=== PATIENT | female | born 1945 | race Caucasian/White ===

== ENCOUNTER 2017-08-01 12:03 | Inpatient (IN) | payer MEDICAID, OTHER ==
[2017-08-01 12:30] VITALS: BMI 23.2
[2017-08-01] MEDS ORDERED: Albuterol 0.083% Inhal Sol (2.5 mg/3 mL) UD IH STA (13:08)
--- NOTE | 2017-08-01 13:32 | ED PDOC ---
Arrival/HPI - General Chief Complaint: Cough, Cold, Congestion Time Seen by Provider: 08/01/17 12:44 Historian: Patient, Family (son ) - History of Present Illness Narrative History of Present Illness (Text): 08/01/17 12:47 A 71 year old female, whose past medical history includes heart stents (10+ years), diabetes, hypertension, hyperlipidemia, and anemia, presents to the emergency department via EMS accompanied by son for generalized sickness, which began 10 days ago. The patient's son states the patient has been sick with a cough, vomiting, and diarrhea for 10 days. 3 days into her sickness they visited the patient's primary doctor, Dr. Dos Santos, who prescribed the patient with Zofran and Bactrim, which did not help the patient's symptoms. Dr. Dos Santos recommended the patient to be seen by an emergency department physician. The patient's son notes the patient has a cough with sputum, subjective fever, nasal congestion, constant vomiting and diarrhea after eating with no blood. The patient denies any chest pain, headaches, or any other complaints at this time. PMD: Dr. Dos Santos Time/Duration: > week (x 10 days ) Symptom Onset: Gradual Symptom Course: Unchanged Activities at Onset: Rest Context: Home Past Medical History - Provider Review Nursing Documentation Reviewed: Yes - Past History Past History: No Previous - Infectious Disease Hx of Infectious Diseases: None - Tetanus Immunization Tetanus Immunization: Up to Date - Reproductive Menopause: Yes - Cardiac Hx Hypertension: Yes - Psychiatric Hx Depression: No Hx Emotional Abuse: No Hx Physical Abuse: No Hx Substance Use: No - Surgical History Hx Coronary Stent: Yes Hx Hysterectomy: Yes - Suicidal Assessment Feels Threatened In Home Enviroment: No Family/Social History - Physician Review Nursing Documentation Reviewed: Yes Family/Social History: No Known Family HX Smoking Status: Never Smoked Hx Alcohol Use: No Hx Substance Use: No Hx Substance Use Treatment: No Allergies/Home Meds Allergies/Adverse Reactions: Allergies No Known Allergies Allergy (Verified 08/01/17 12:35) Home Medications: Home Meds Medication Instructions Recorded Confirmed Aspirin 81 mg PO DAILY 06/21/12 08/01/17 Ferrous Sulfate [Fe-Tabs] 325 mg PO DAILY 06/21/12 08/01/17 Metformin Hydrochloride [Metformin] 1,000 mg PO BID 06/21/12 08/01/17 Metoprolol Tartrate 25 mg PO BID 06/21/12 08/01/17 Simvastatin [Zocor] 40 mg PO DAILY 06/21/12 08/01/17 Amoxicillin/Potassium Clav 1 tab PO BID 04/11/15 08/01/17 [Amoxicillin and Clavulanate Potassium 500 mg-] Enalapril Maleate [Enalapril] 10 mg PO DAILY 04/11/15 08/01/17 Ranitidine HCl [Ranitidine 150] 150 mg PO BID 04/11/15 08/01/17 Review of Systems - Physician Review All systems were reviewed & negative as marked: Yes - Review of Systems Constitutional: Fevers (subjective) ENT: Sinus Congestion Respiratory: Cough, Sputum Cardiovascular: absent: Chest Pain Gastrointestinal: Diarrhea, Nausea, Vomiting Neurological: absent: Headache Physical Exam Vital Signs Reviewed: Yes Vital Signs Temp Pulse Resp BP Pulse Ox 08/01/17 13:16 86 18 132/75 97 08/01/17 12:48 98.5 F 97 H 18 134/85 97 08/01/17 12:29 98.5 F 97 H 18 134/85 96 Temperature: Afebrile Blood Pressure: Normal Pulse: Tachycardic Respiratory Rate: Normal Appearance: Positive for: Well-Appearing, Non-Toxic, Comfortable Pain Distress: None Mental Status: Positive for: Alert and Oriented X 3 - Systems Exam Head: Present: Atraumatic, Normocephalic Pupils: Present: PERRL Extroacular Muscles: Present: EOMI Conjunctiva: Present: Normal Mouth: Present: Moist Mucous Membranes Pharnyx: Present: Normal. No: ERYTHEMA, EXUDATE, TONSILS ENLARGED Neck: Present: Normal Range of Motion Respiratory/Chest: Present: Rhonchi (biulateral rhonchi), Other (actively coughing). No: Respiratory Distress, Accessory Muscle Use, Wheezes, Rales Cardiovascular: Present: Regular Rate and Rhythm, Normal S1, S2. No: Murmurs Abdomen: Present: Normal Bowel Sounds. No: Tenderness, Distention, Peritoneal Signs Upper Extremity: Present: Normal Inspection. No: Cyanosis, Edema Lower Extremity: Present: Normal Inspection. No: Edema Neurological: Present: GCS=15, CN II-XII Intact, Speech Normal Skin: Present: Warm, Dry, Normal Color. No: Rashes Psychiatric: Present: Alert, Oriented x 3, Normal Insight, Normal Concentration Medical Decision Making ED Course and Treatment: 08/01/17 13:00 Impression: A 71 year old female with vomiting, diarrhea, and coughing. Differential Diagnosis included but are not limited to: viral syndrome vs. pneumonia Plan: -- Chest X-ray -- EKG -- VBG -- Labs -- Albuterol, Zofran -- Urinalysis -- Reassess and disposition Progress Notes: 08/01/17 13:15 EKG: Ordered, reviewed, and independently interpreted the EKG. Rate : 84 BPM Rhythm : NSR Interpretation : Incomplete RBBB, left axis deviation and T wave inversion in lead 3. 08/01/17 13:57 Chest X-ray [employer] : Joesph Morales MD Report Date : 08/01/2017 13:43:54 HISTORY:cough r/o pna COMPARISON:No prior. FINDINGS: LUNGS:There is a minimal patchy infiltrate at the left lung base. PLEURA:No significant pleural effusion identified, no pneumothorax apparent. CARDIOVASCULAR:Normal. OSSEOUS STRUCTURES:No significant abnormalities. VISUALIZED UPPER ABDOMEN:Normal. OTHER FINDINGS:None. IMPRESSION: Minimal patchy infiltrate at the left lung base 08/01/17 14:13 Patient is noted to have left lung infiltrate and will treat with IV antiobiotics. Patient failed outpatient treatment for Pneumonia. WBC normal. Magnesium low an replaced. BUN elevated. Patient not tolerating PO fluids. Will admit for Pneumonia and IV hydration. Case discussed with Dr. Guido who will accept the case. - Lab Interpretations Lab Results: 08/01/17 13:25 08/01/17 13:25 Lab Results 08/01/17 13:25: Sodium 136, Chloride 97 L, Potassium 4.6, Carbon Dioxide 25, Anion Gap 19, BUN 25 H, Creatinine 1.1, Est GFR ( Amer) 59, Est GFR (Non- Af Amer) 49, Random Glucose 218 H, Calcium 10.3, Total Bilirubin 0.6, AST 36, ALT 23, Alkaline Phosphatase 80, Lactate Dehydrogenase 545, Total Creatine Kinase 52, Troponin I < 0.01, NT-Pro-B Natriuret Pep 241, Total Protein 8.7 H, Albumin 4.4, Globulin 4.3, Albumin/Globulin Ratio 1.0 L 08/01/17 13:25: WBC 9.8, RBC 4.12, Hgb 11.2 L, Hct 33.7 L, MCV 81.8, MCH 27.2, MCHC 33.2, RDW 14.7 H, Plt Count 444, MPV 9.1, Gran % 75.8 H, Lymph % (Auto) 16.8 L, [place] % (Auto) 6.9 H, Eos % (Auto) 0.3 L, Baso % (Auto) 0.2, Gran # 7.42 H, Lymph # 1.7, Beltrami # 0.7 H, Eos # 0.0, Baso # 0.02 08/01/17 13:20: Magnesium 1.4 L, Lipase 146 08/01/17 13:00: pO2 35, VBG pH 7.33, VBG pCO2 48.0, VBG HCO3 25.3, VBG Total CO2 26.8, VBG O2 Sat (Calc) 69.1 H, VBG Base Excess -1.1 L, VBG Potassium 4.6, Sodium 133.0, Chloride 99.0, Glucose 227 H, Lactate 2.1, FiO2 21.0, Venous Blood Potassium 4.6 - RAD Interpretation Radiology Orders: 08/01/17 13:06 CHEST PORTABLE [RAD] Stat - Medication Orders Current Medication Orders: Sodium Chloride (Sodium Chloride 0.9%) 1,000 mls @ 100 mls/hr IV .Q10H [facility] Last Admin: 08/01/17 14:11 Dose: 100 mls/hr eMAR Start Stop Document 08/01/17 14:11 SE (Rec: 08/01/17 14:11 SE [id number]) Intravenous Solution Start Date 08/01/17 Start Time 14:11 Discontinued Medications Albuterol Sulfate (Albuterol 0.083% Inhal Zoe (2.5 Mg/3 Ml) Ud) 2.5 mg IH STAT STA Stop: 08/01/17 13:09 Last Admin: 08/01/17 13:22 Dose: 2.5 mg Magnesium Oxide (Mag-Ox) 400 mg PO STAT STA Stop: 08/01/17 14:08 Last Admin: 08/01/17 14:12 Dose: 400 mg Ondansetron HCl (Zofran Inj) 4 mg IVP STAT STA Stop: 08/01/17 13:09 Last Admin: 08/01/17 13:22 Dose: 4 mg IVP Administration Document 08/01/17 13:22 SE (Rec: 08/01/17 13:22 SE [id number]) Charges for Administration # of IVP Administrations 1 - Scribe Statement The provider has reviewed the documentation as recorded by the Scribe Linda Abreu Provider Scribe Attestation: All medical record entries made by the Scribe were at my direction and personally dictated by me. I have reviewed the chart and agree that the record accurately reflects my personal performance of the history, physical exam, medical decision making, and the department course for this patient. I have also personally directed, reviewed, and agree with the discharge instructions and disposition. Disposition/Present on Arrival - Present on Arrival Any Indicators Present on Arrival: No History of DVT/PE: No History of Uncontrolled Diabetes: No Urinary Catheter: No History of Decub. Ulcer: No History Surgical Site Infection Following: None - Disposition Have Diagnosis and Disposition been Completed?: Yes Diagnosis: Pneumonia Disposition: HOSPITALIZED Disposition Time: 14:14 Patient Plan: Admission Condition: FAIR Referrals: Candie Guido MD [Primary Care Provider] - Follow up with primary Forms: [employer] (Telugu)
[2017-08-01 13:34] LABS: VENOUS BLOOD GAS BASE EXCESS -1.1 mmol/L (0.0-2.0); VENOUS BLOOD PH 7.33 (7.32-7.43)
[2017-08-01 13:34] LABS: BASO # 0.02 K/mm3 (0.0-2.0); BASO % 0.2 % (0.0-3.0); EOS % 0.3 % (1.5-5.0); GRAN # 7.42 (1.4-6.5); GRAN % 75.8 % (50.0-68.0); HEMATOCRIT 33.7 % (36.0-48.0); LYMPH # 1.7 (1.2-3.4); LYMPH % 16.8 % (22.0-35.0); MEAN CELL VOLUME 81.8 fl (80.0-105.0); MEAN CORPUSCULAR HEMOGLOBIN 27.2 pg (25.0-35.0); MEAN CORPUSCULAR HGB CONC 33.2 g/dl (31.0-37.0); MEAN PLATELET VOLUME 9.1 fl (7.0-11.0); MONO # 0.7 (0.1-0.6); MONO % 6.9 % (1.0-6.0); RED CELL DISTRIBUTION WIDTH 14.7 % (11.5-14.5); WHITE BLOOD COUNT 9.8 10^3/ul (4.5-11.0)
[2017-08-01 13:44] LABS: ALKALINE PHOSPHATASE 80 U/L (38-126); ALT/SGPT 23 U/L (7-56); AST/SGOT 36 U/L (14-36); BILIRUBIN,TOTAL 0.6 mg/dL (0.2-1.3); BLOOD UREA NITROGEN 25 mg/dL (7-21); CALCIUM 10.3 mg/dL (8.4-10.5); CARBON DIOXIDE 25 mmol/L (21-33); CHLORIDE 97 mmol/L (98-107); GFR AFRICAN-AMERICAN 59; GLUCOSE,RANDOM 218 mg/dL (70-110); POTASSIUM 4.6 mmol/L (3.6-5.0); SODIUM 136 mmol/L (132-148); TOTAL PROTEIN 8.7 g/dL (5.8-8.3)
--- NOTE | 2017-08-01 13:45 | RAD ---
HISTORY: cough r/o pna COMPARISON: No prior. FINDINGS: LUNGS: There is a minimal patchy infiltrate at the left lung base. PLEURA: No significant pleural effusion identified, no pneumothorax apparent. CARDIOVASCULAR: Normal. OSSEOUS STRUCTURES: No significant abnormalities. VISUALIZED UPPER ABDOMEN: Normal. OTHER FINDINGS: None. IMPRESSION: Minimal patchy infiltrate at the left lung base
[2017-08-01 13:56] LABS: TROPONIN I < 0.01 ng/mL
[2017-08-01 14:04] LABS: MAGNESIUM 1.4 mg/dL (1.7-2.2)
[2017-08-01] MEDS ORDERED: Magnesium Oxide 400 mg Tab UD PO STA (14:07)
[2017-08-01] MEDS: Sodium Chloride 0.9% 1,000 ML IV SCH (14:11)
[2017-08-01] MEDS ORDERED: cefTRIAXone 1 gm 1 GM/100 ML BAG IVPB STA (14:33)
[2017-08-01 14:37] LABS: URINE BILIRUBIN NEGATIVE (NEGATIVE); URINE BLOOD NEGATIVE (NEGATIVE); URINE GLUCOSE (UA) NEGATIVE (NEGATIVE); URINE KETONE NEGATIVE (NEGATIVE); URINE LEUKOCYTE ESTERASE SMALL Leu/uL (NEGATIVE); URINE PROTEIN 30 mg/dL (<30 mg/dL); URINE UROBILINOGEN 0.2 E.U./dL (<1 E.U./dL)
[2017-08-01 14:38] LABS: URINE APPEARANCE SL CLOUDY (CLEAR); URINE COLOR YELLOW (YELLOW)
[2017-08-01 14:41] LABS: URINE BACTERIA FEW (NEG); URINE RBC NEGATIVE /hpf (0-2)
[2017-08-01 18:07] LABS: VENOUS BLOOD PH 7.38 (7.32-7.43)
[2017-08-01] MEDS ORDERED: Influenza Vaccine 60 mcg/0.5 mL SYR (4YR UP) IM ONE (18:52)
[2017-08-01] MEDS ORDERED: Pneumococcal 23-Valent Vaccine IM ONE (18:52)
[2017-08-01] MEDS: Albuterol-Ipratrop 3 mg / 0.5 (3 ml) UD IH SCH (19:33)
[2017-08-01] MEDS: Insulin Reg-LOW-Coverage SC SCH (22:09)
[2017-08-02] MEDS: Albuterol-Ipratrop 3 mg / 0.5 (3 ml) UD IH SCH ×4 (02:01→19:28)
[2017-08-02] MEDS: Sodium Chloride 0.9% 1,000 ML IV SCH (02:56)
[2017-08-02 07:12] LABS: HEMATOCRIT 28.6 % (36.0-48.0); MEAN CELL VOLUME 82.4 fl (80.0-105.0); MEAN CORPUSCULAR HEMOGLOBIN 26.2 pg (25.0-35.0); MEAN CORPUSCULAR HGB CONC 31.8 g/dl (31.0-37.0); WHITE BLOOD COUNT 8.3 10^3/ul (4.5-11.0)
[2017-08-02 07:14] LABS: BLOOD UREA NITROGEN 13 mg/dL (7-21); CALCIUM 8.8 mg/dL (8.4-10.5); CARBON DIOXIDE 26 mmol/L (21-33); CHLORIDE 104 mmol/L (98-107); CHOLESTEROL 111 mg/dL (130-200); GFR AFRICAN-AMERICAN > 60; GLUCOSE,RANDOM 151 mg/dL (70-110); POTASSIUM 4.3 mmol/L (3.6-5.0); SODIUM 137 mmol/L (132-148)
[2017-08-02] MEDS: Insulin Reg-LOW-Coverage SC SCH ×4 (08:42→21:30)
[2017-08-02] MEDS: Azithromycin 500MG/NS 250ml 500 MG/250 ML BAG IVPB SCH (09:15)
[2017-08-02] MEDS: cefTRIAXone 1 gm 1 GM/100 ML BAG IVPB SCH (09:16)
--- NOTE | 2017-08-02 09:54 | CARD ---
APPROVED REPORT EKG Measurement Heart [id number] <Conclusion> Normal sinus rhythm Left axis deviation Low voltage QRS Incomplete right bundle branch block NSSTW changes
[2017-08-02] MEDS ORDERED: Azithromycin 500 MG in Sodium Chloride 0.9% 250 ML IVPB SCH (10:00)
[2017-08-02 12:56] LABS: FOLATE 4.8 ng/mL
[2017-08-02] MEDS ORDERED: Bismuth Subsalicylate 262 mg/15 ml Sus (240 ml) PO ONE (14:51)
--- NOTE | 2017-08-02 17:17 | CP.PCM.CON ---
History of Present Illness - History of Present Illness History of Present Illness: Infectious Disease Consultation: August 02, 2017 71 yo female with 10 days of feeling ill. During this time the patient had nausea, vomiting, and diarrhea. The patient received Zofran and Bactrim from her PMD but it did not help her. She came to the ER under instruction by her PMD. Chest X-ray shows mild patchy infiltrate in left lower lung. Possible UTI. Started on Rocephin and Azithromycin in the hospital. Cultures taken and pending. The patient's medical issues include DM, HTN, CAD requiring stents, HLD, and anemia. PMHx: DM, HTN, CAD required stent placements, HLD, and anemia PSHx: stent placements Allergies: NKDA Social Hx: No tobacco, EtOH, or illicit drug use Active Medications Acetaminophen (Tylenol 325mg Tab) 650 mg PO Q4H PRN PRN Reason: Fever >100.5 F Acetaminophen (Tylenol 325mg Tab) 650 mg PO Q4H PRN PRN Reason: pain fever Last Admin: 08/01/17 20:29 Dose: 650 mg Albuterol/Ipratropium (Duoneb 3 Mg/0.5 Mg (3 Ml) Ud) 3 ml IH [id number] PENDING SALE TO [facility] Last Admin: 08/02/17 13:25 Dose: 3 ml Aspirin (Ecotrin) 81 mg PO DAILY [facility] Last Admin: 08/02/17 09:16 Dose: 81 mg Atorvastatin Calcium (Lipitor) 20 mg PO DIN [facility] Bismuth Subsalicylate (Pepto-Bismol) 68 mg PO TID PRN PRN Reason: Loose stools Famotidine (Pepcid) 20 mg PO BID [facility] Last Admin: 08/02/17 09:16 Dose: 20 mg Ferrous Sulfate (Feosol) 324 mg PO DAILY [facility] Last Admin: 08/02/17 09:16 Dose: 324 mg Sodium Chloride (Sodium Chloride 0.9%) 1,000 mls @ 100 mls/hr IV .Q10H [facility] Last Admin: 08/02/17 02:56 Dose: 100 mls/hr Ceftriaxone Sodium (Rocephin 1 Gram Ivpb) 1 gm in 100 mls @ 100 mls/hr IVPB DAILY [facility] PRN Reason: Protocol Last Admin: 08/02/17 09:16 Dose: 100 mls/hr Azithromycin (Zithromax 500mg In Ns) 500 mg in 250 mls @ 167 mls/hr IVPB DAILY [facility] Last Admin: 08/02/17 09:15 Dose: 167 mls/hr Insulin Human Regular (Humulin R Low) 0 units SC ACHS [facility] PRN Reason: Protocol Last Admin: 08/02/17 12:27 Dose: 2 units Lisinopril (Zestril) 10 mg PO DAILY [facility] Last Admin: 08/02/17 09:16 Dose: 10 mg Metformin HCl (Glucophage) 1,000 mg PO BID [facility] Last Admin: 08/02/17 09:16 Dose: 1,000 mg Metoprolol Tartrate (Lopressor) 25 mg PO BRKDIN [facility]END[facility] Last Admin: 08/02/17 08:42 Dose: 25 mg Ondansetron HCl (Zofran Inj) 4 mg IVP Q6 PRN PRN Reason: Nausea/Vomiting Family Hx: none given ROS: Nausea, vomiting, cough No fevers, chills, headaches, dizziness, chest pain, abdominal pain, melena, hematuria, hematemesis, hematochezia, depression, anxiety, vision loss, hearing loss. Past Patient History - Infectious Disease Hx of Infectious Diseases: None - Tetanus Immunizations Tetanus Immunization: Up to Date - Past Social History Smoking Status: Never Smoked - CARDIAC Hx Hypertension: Yes - MUSCULOSKELETAL/RHEUMATOLOGICAL Hx Falls: Yes - PSYCHIATRIC Hx Depression: No Hx Emotional Abuse: No Hx Physical Abuse: No - SURGICAL HISTORY Hx Coronary Stent: Yes Hx Hysterectomy: Yes Meds Allergies/Adverse Reactions: Allergies Allergy/AdvReac Type Severity Reaction Status Date / Time No Known Allergies Allergy Verified 08/01/17 12:35 - Medications Medications: Current Medications Acetaminophen (Tylenol 325mg Tab) 650 mg PO Q4H PRN PRN Reason: Fever >100.5 F Acetaminophen (Tylenol 325mg Tab) 650 mg PO Q4H PRN PRN Reason: pain fever Last Admin: 08/01/17 20:29 Dose: 650 mg Albuterol/Ipratropium (Duoneb 3 Mg/0.5 Mg (3 Ml) Ud) 3 ml IH [id number] PEND[facility] SALE [facility] Last Admin: 08/02/17 13:25 Dose: 3 ml Aspirin (Ecotrin) 81 mg PO DAILY [facility]END[facility] Last Admin: 08/02/17 09:16 Dose: 81 mg Atorvastatin Calcium (Lipitor) 20 mg PO DIN [facility]END[facility] Bismuth Subsalicylate (Pepto-Bismol) 68 mg PO TID PRN PRN Reason: Loose stools Famotidine (Pepcid) 20 mg PO BID [facility]END[facility] Last Admin: 08/02/17 09:16 Dose: 20 mg Ferrous Sulfate (Feosol) 324 mg PO DAILY [facility] Last Admin: 08/02/17 09:16 Dose: 324 mg Sodium Chloride (Sodium Chloride 0.9%) 1,000 mls @ 100 mls/hr IV .Q10H [facility] Last Admin: 08/02/17 02:56 Dose: 100 mls/hr Ceftriaxone Sodium (Rocephin 1 Gram Ivpb) 1 gm in 100 mls @ 100 mls/hr IVPB DAILY [facility]END[facility] PRN Reason: Protocol Last Admin: 08/02/17 09:16 Dose: 100 mls/hr Azithromycin (Zithromax 500mg In Ns) 500 mg in 250 mls @ 167 mls/hr IVPB DAILY [facility] Last Admin: 08/02/17 09:15 Dose: 167 mls/hr Insulin Human Regular (Humulin R Low) 0 units SC ACHS [facility]END[facility] PRN Reason: Protocol Last Admin: 08/02/17 12:27 Dose: 2 units Lisinopril (Zestril) 10 mg PO DAILY [facility] Last Admin: 08/02/17 09:16 Dose: 10 mg Metformin HCl (Glucophage) 1,000 mg PO BID [facility] Last Admin: 08/02/17 09:16 Dose: 1,000 mg Metoprolol Tartrate (Lopressor) 25 mg PO BRKDIN [facility] Last Admin: 08/02/17 08:42 Dose: 25 mg Ondansetron HCl (Zofran Inj) 4 mg IVP Q6 PRN PRN Reason: Nausea/Vomiting Physical Exam - Constitutional Appears: Non-toxic, No Acute Distress - Head Exam Head Exam: ATRAUMATIC, NORMOCEPHALIC - Eye Exam Eye Exam: EOMI, PERRL Pupil Exam: NORMAL ACCOMODATION, PERRL - ENT Exam ENT Exam: Mucous Membranes Moist, Normal External Ear Exam, TM's Normal Bilaterally - Neck Exam Neck exam: Positive for: Full Rom, Normal Inspection - Respiratory Exam Respiratory Exam: Decreased Breath Sounds, Rhonchi, NORMAL BREATHING PATTERN. absent: Rales, Wheezes - Cardiovascular Exam Cardiovascular Exam: REGULAR RHYTHM, RRR, +S1, +S2 - GI/Abdominal Exam GI & Abdominal Exam: Normal Bowel Sounds, Soft. absent: Distended, Tenderness - Extremities Exam Extremities exam: Positive for: full ROM, normal inspection - Neurological Exam Neurological exam: Alert, CN II-XII Intact, Normal Gait, Oriented x3 - Psychiatric Exam Psychiatric exam: Normal Affect, Normal Mood - Skin Skin Exam: Intact, Normal Color Results - Vital Signs Recent Vital Signs: Last Vital Signs Temp 98.2 F 08/02/17 16:34 Pulse 77 08/02/17 16:34 Resp 20 08/02/17 16:34 BP 113/65 08/02/17 16:34 Pulse Ox 100 08/02/17 16:34 - Labs Result Diagrams: 08/02/17 06:00 08/02/17 06:00 Labs: Laboratory Results - last 24 hr 08/01/17 08/01/17 08/02/17 18:03 21:42 06:00 WBC RBC Hgb Hct MCV MCH MCHC RDW Plt Count MPV pO2 24 L VBG pH 7.38 VBG pCO2 47.0 VBG HCO3 27.8 VBG Total CO2 29.2 H VBG O2 Sat (Calc) 49.2 VBG Base Excess 2.0 VBG Potassium 4.3 Sodium 134.0 137 Chloride 100.0 104 Glucose 246 H Lactate 1.5 FiO2 21.0 Potassium 4.3 Carbon Dioxide 26 Anion Gap 12 BUN 13 Creatinine 0.8 Est GFR ( Amer) > 60 Est GFR (Non-Af Amer) > 60 POC Glucose (mg/dL) 216 H Random Glucose 151 H Calcium 8.8 Iron TIBC % Saturation Triglycerides 102 Cholesterol 111 L LDL Cholesterol Direct 33 HDL Cholesterol 48 Vitamin B12 > 1000 H Folate 4.8 TSH 3rd Generation Venous Blood Potassium 4.3 08/02/17 08/02/17 08/02/17 06:00 06:00 06:00 WBC 8.3 RBC 3.47 L Hgb 9.1 L D Hct 28.6 L MCV 82.4 MCH 26.2 MCHC 31.8 RDW 15.0 H Plt Count 411 MPV 9.0 pO2 VBG pH VBG pCO2 VBG HCO3 VBG Total CO2 VBG O2 Sat (Calc) VBG Base Excess VBG Potassium Sodium Chloride Glucose Lactate FiO2 Potassium Carbon Dioxide Anion Gap BUN Creatinine Est GFR ( Amer) Est GFR (Non-Af Amer) POC Glucose (mg/dL) Random Glucose Calcium Iron 33 L TIBC 263.2 % Saturation 13 L Triglycerides Cholesterol LDL Cholesterol Direct HDL Cholesterol Vitamin B12 Folate TSH 3rd Generation 0.16 L Venous Blood Potassium 08/02/17 08/02/17 08/02/17 07:34 11:40 15:28 WBC RBC Hgb Hct MCV MCH MCHC RDW Plt Count MPV pO2 VBG pH VBG pCO2 VBG HCO3 VBG Total CO2 VBG O2 Sat (Calc) VBG Base Excess VBG Potassium Sodium Chloride Glucose Lactate FiO2 Potassium Carbon Dioxide Anion Gap BUN Creatinine Est GFR ( Amer) Est GFR (Non-Af Amer) POC Glucose (mg/dL) 173 H 207 H 82 Random Glucose Calcium Iron TIBC % Saturation Triglycerides Cholesterol LDL Cholesterol Direct HDL Cholesterol Vitamin B12 Folate TSH 3rd Generation Venous Blood Potassium Assessment & Plan - Assessment and Plan (Free Text) Assessment: 71 yo female who presented with a ten day history of cough, nausea, vomiting, and diarrhea. The patient failed outpatient antibiotics of Bactrim. Given Azithromycin and Rocephin in hospital. Chest X-ray showing mild patchy infiltrate of the left lower lobe... possible pneumonia. Mild changed in urinalysis. Weak evidence for UTI. Elizalde cultures of blood and urine sent... awaiting results. Will continue on Rocephin and Azithromycin for now. Supportive care. No fevers or leukocytosis at this time. Will monitor. Thank you for allowing me to participate in the care of the patient, we will follow with you.
[2017-08-02] MEDS: Bismuth Subsalicylate 262 mg/15 ml Sus (240 ml) PO PRN (21:28)
[2017-08-03] MEDS: Albuterol-Ipratrop 3 mg / 0.5 (3 ml) UD IH SCH ×4 (03:00→19:56)
--- NOTE | 2017-08-03 06:17 | CON ---
DATE: 08/02/2017 HISTORY OF PRESENT ILLNESS: This patient was seen and evaluated earlier today. This 71-year-old patient with past medical history of coronary artery disease, diabetes mellitus, hypertension, and dyslipidemia, presented to the emergency room because of weakness. The patient had a history of cough, vomiting, and loose bowel movements. The patient was earlier treated as an outpatient with Bactrim and Zofran. The patient continues to have complaints of fever, diarrhea, vomiting, and abdominal discomfort along with nasal congestion. Hence, the patient was admitted for further evaluation. The patient has no further episodes of vomiting since admission, but he had 2 episodes of loose bowel movements. PAST MEDICAL HISTORY: Other past medical history is significant as above. The patient has a history of coronary artery disease status post PCI and history of hypertension. PAST SURGICAL HISTORY: Includes hysterectomy. FAMILY HISTORY: Noncontributory. ALLERGIES: NO KNOWN DRUG ALLERGIES. MEDICATIONS: This patient was on Augmentin . PHYSICAL EXAMINATION: GENERAL: The patient is lying on the bed, not in acute distress. VITAL SIGNS: Temperature is 98.2, pulse 77, blood pressure 113/65. HEENT: Atraumatic, anicteric. NECK: Supple. HEART: S1 and S2 heard. LUNGS: Bilateral air entry present. ABDOMEN: Soft. No obvious tenderness. EXTREMITIES: No cyanosis. No clubbing. NEUROLOGIC: Alert and oriented. Moves all the extremities. LABORATORY DATA: Hemoglobin 9.1, hematocrit 28.5, WBC is 8.3, platelet is 411. BUN 13, creatinine 0.8. Hemoglobin is up to 9.1; the patient when initially came in, it was 11.2. IMPRESSION: This 71-year-old patient with history of diabetes mellitus, hypertension, coronary artery disease, and dyslipidemia, admitted with episodes of diarrhea, nausea, vomiting, and discomfort. The patient's chest x-ray showed mild patchy infiltrate. The patient was initially started on ceftriaxone and Zithromax. The patient was seen by ID. The patient presently is on ceftriaxone and azithromycin. rule out Clostridium difficile colitis. We will empirically start the patient on PPI. Possible other diagnosis for nausea could also be gastroparesis. We will start the patient on liquid diet and slowly advance the diet. We will request stool for Clostridium difficile. We will continue to closely follow up her care and suggest further management based on the clinical course. Maria E Blackmon MD
[2017-08-03] MEDS: Insulin Reg-LOW-Coverage SC SCH ×4 (08:15→22:00)
[2017-08-03] MEDS: cefTRIAXone 1 gm 1 GM/100 ML BAG IVPB SCH (09:32)
[2017-08-03] MEDS: Azithromycin 500MG/NS 250ml 500 MG/250 ML BAG IVPB SCH (09:33)
--- NOTE | 2017-08-03 16:54 | PN ---
DATE: 08/03/2017 SUBJECTIVE: This patient was seen and evaluated earlier today. The patient is tolerating diet. No vomiting and diarrhea has improved. PHYSICAL EXAMINATION: VITAL SIGNS: Temperature 98, blood pressure is 104/62, respiration is 20, and O2 saturation is 99%. HEENT: Atraumatic, anicteric. NECK: Supple. HEART: S1 and S2 heard. LUNGS: Bilateral air entry present. ABDOMEN: Soft. There is no mass palpable. EXTREMITIES: No cyanosis. No clubbing. LABORATORY DATA: There are no recent labs today. IMPRESSION: This 71-year-old patient who initially had some cough, nausea and vomiting and loss of bowel movements. She had an outpatient treatment with the Bactrim. The patient's main complaint was diarrhea and abdominal discomfort. She has a cough and chest x-ray showed some lung infiltrate. The patient has been started on antibiotic and continued on ceftriaxone and Zithromax. The patient is also on Pepto-Bismol on p.r.n. basis. No further episodes of diarrhea. Other comorbidities of the patient include dyslipidemia and diabetes mellitus. I requested stool for Clostridium difficile. Well tolerating the diet. Thank you very much for allowing us to participate in the care of the patient. Maria E Blackmon MD
[2017-08-03] MEDS: Ciprofloxacin/Dexamethasone OTIC SUSP AS SCH (17:27)
--- NOTE | 2017-08-03 17:27 | PN ---
SUBJECTIVE: The patient is a 71-year-old female. The patient was seen and examined at the bedside. Diarrhea is better. Nausea and vomiting are better. Cough and shortness of breath are better, but complaining of pain in the both ears. Discussion done with the nurse. We will call ENT consult. No fever. No chills. No hematuria or hematochezia. No shortness of breath. PHYSICAL EXAMINATION: VITAL SIGNS: Temperature 97.7, pulse 98, blood pressure 104/62, respiratory rate 20. HEENT: Head is normocephalic and atraumatic. Eyes, PERRLA. Extraocular muscles are intact. Conjunctivae are clear. Nose, patent. Mucous membranes are moist. NECK: Supple. No carotid bruit, JVD or thyromegaly. CHEST: Bilaterally symmetrical. HEART: S1 and S2 positive. LUNGS: Clear to auscultation. ABDOMEN: Soft. Bowel sounds present. No organomegaly. EXTREMITIES: No edema. No cyanosis. NEUROLOGIC: The patient is awake and alert. Moving all four extremities. No focal deficits. MEDICATIONS: Ciprodex, DuoNeb, aspirin, ferrous sulfate, Flonase, Glucophage, insulin, Lipitor, Lopressor, Pepcid ,Tylenol, Zestril, Zithromax, Zofran. LABORATORY DATA: We do not have recent lab today, but reviewed old labs. ASSESSMENT AND PLAN: Ms. Joann Coronado is a 71-year-old lady with anemia, uncontrolled diabetes mellitus, proteinuria, urinary tract infection, influenza type B is negative. Urine culture, multiple species, just need a repeat specimen. Blood cultures, no growth after 48 hours. Gram staining pending. Seen by Dr. Blackmon, marble ceiling installer, and Dr. Black, Infectious Disease. History of hypertension, coronary artery disease, and dyslipidemia. She was admitted with gastroenteritis, pneumonia, failed outpatient treatment with antibiotics. Infectious Disease is on the case. Getting ceftriaxone and azithromycin. Rule out Clostridium difficile and colitis, getting PPI, rule out gastroparesis. Getting a liquid diet and advancing slowly. Continue to closely follow up. We will follow up. Candie Guido MD [facility] # [id number] TIM[place]
[2017-08-03] MEDS: Fluticasone Nasal 50 mcg/Spray NS SCH (17:28)
--- NOTE | 2017-08-03 18:43 | CP.PCM.PN ---
Subjective - Date & Time of Evaluation Date of Evaluation: 08/03/17 Time of Evaluation: 16:00 - Subjective Subjective: Infectious Disease Follow Up: August 03, 2017 71 yo female with 10 days of feeling ill. During this time the patient had nausea, vomiting, and diarrhea. The patient received Zofran and Bactrim from her PMD but it did not help her. She came to the ER under instruction by her PMD. Chest X-ray shows mild patchy infiltrate in left lower lung. Possible UTI. Started on Rocephin and Azithromycin in the hospital. Cultures taken and pending. The patient's medical issues include DM, HTN, CAD requiring stents, HLD, and anemia. No diarrhea today. Patient states that she feels better. Objective - Vital Signs/Intake and Output Vital Signs (last 24 hours): Temp Pulse Resp BP Pulse Ox 97.7 F 98 H 20 104/62 99 08/03/17 06:00 08/03/17 09:31 08/03/17 06:00 08/03/17 09:31 08/03/17 06:00 Intake and Output: 08/03/17 08/03/17 06:59 18:59 Intake Total 540 Balance 540 - Medications Medications: Current Medications Acetaminophen (Tylenol 325mg Tab) 650 mg PO Q4H PRN PRN Reason: pain fever Last Admin: 08/03/17 15:54 Dose: 650 mg Albuterol/Ipratropium (Duoneb 3 Mg/0.5 Mg (3 Ml) Ud) 3 ml IH [id number] [facility] Last Admin: 08/03/17 13:36 Dose: 3 ml Aspirin (Ecotrin) 81 mg PO DAILY [facility] Last Admin: 08/03/17 09:30 Dose: 81 mg Atorvastatin Calcium (Lipitor) 20 mg PO DIN [facility] Last Admin: 08/03/17 17:26 Dose: 20 mg Bismuth Subsalicylate (Pepto-Bismol) 68 mg PO TID PRN PRN Reason: Loose stools Last Admin: 08/02/17 21:28 Dose: 68 mg Ciprofloxacin/Dexamethasone (Ciprodex Otic) 3 drop BID [facility] Last Admin: 08/03/17 17:27 Dose: 3 drop Famotidine (Pepcid) 20 mg PO BID [facility] Last Admin: 08/03/17 17:27 Dose: 20 mg Ferrous Sulfate (Feosol) 324 mg PO DAILY [facility] Last Admin: 08/03/17 09:31 Dose: 324 mg Fluticasone Propionate (Flonase) 1 actuation NS BID [facility] Last Admin: 08/03/17 17:28 Dose: 1 spr Ceftriaxone Sodium (Rocephin 1 Gram Ivpb) 1 gm in 100 mls @ 100 mls/hr IVPB DAILY [facility] PRN Reason: Protocol Last Admin: 08/03/17 09:32 Dose: 100 mls/hr Azithromycin (Zithromax 500mg In Ns) 500 mg in 250 mls @ 167 mls/hr IVPB DAILY [facility] Last Admin: 08/03/17 09:33 Dose: 167 mls/hr Insulin Human Regular (Humulin R Low) 0 units SC ACHS [facility] PRN Reason: Protocol Last Admin: 08/03/17 18:11 Dose: 1 units Lisinopril (Zestril) 10 mg PO DAILY [facility] Last Admin: 08/03/17 09:31 Dose: 10 mg Metformin HCl (Glucophage) 1,000 mg PO BID [facility] Last Admin: 08/03/17 17:26 Dose: 1,000 mg Metoprolol Tartrate (Lopressor) 25 mg PO BRKDIN [facility] Last Admin: 08/03/17 17:26 Dose: 25 mg Ondansetron HCl (Zofran Inj) 4 mg IVP Q6 PRN PRN Reason: Nausea/Vomiting - Labs Labs: 08/02/17 06:00 08/02/17 06:00 - Constitutional Appears: Non-toxic, No Acute Distress - Head Exam Head Exam: ATRAUMATIC, NORMOCEPHALIC - Eye Exam Eye Exam: EOMI, PERRL Pupil Exam: NORMAL ACCOMODATION, PERRL - ENT Exam ENT Exam: Mucous Membranes Moist, Normal External Ear Exam, TM's Normal Bilaterally - Neck Exam Neck Exam: Full ROM, Normal Inspection - Respiratory Exam Respiratory Exam: Clear to Ausculation Bilateral, NORMAL BREATHING PATTERN. absent: Rales, Rhonchi, Wheezes - Cardiovascular Exam Cardiovascular Exam: REGULAR RHYTHM, RRR, +S1, +S2 - GI/Abdominal Exam GI & Abdominal Exam: Soft, Normal Bowel Sounds. absent: Distended, Tenderness - Extremities Exam Extremities Exam: Full ROM, Normal Inspection - Neurological Exam Neurological Exam: Alert, Awake, CN II-XII Intact, Oriented x3 - Psychiatric Exam Psychiatric exam: Normal Affect, Normal Mood - Skin Skin Exam: Intact, Normal Color Assessment and Plan - Assessment and Plan (Free Text) Assessment: 71 yo female who presented with a ten day history of cough, nausea, vomiting, and diarrhea. The patient failed outpatient antibiotics of Bactrim. Given Azithromycin and Rocephin in hospital. Chest X-ray showing mild patchy infiltrate of the left lower lobe... possible pneumonia. Mild changed in urinalysis. Weak evidence for UTI. Elizalde cultures of blood and urine sent... awaiting results. Will continue on Rocephin and Azithromycin for now. Supportive care. Diarrhea appears to have resolved. Cultures so far are negative. C. diff not done as no sample available for testing (diarrhea resolved). Patient states that she feels better at this time. She has a new complaint of ear pain and was found to have a ruptured left ear drum. No fevers or leukocytosis at this time. Will monitor. Thank you for allowing me to participate in the care of the patient, we will follow with you.
--- NOTE | 2017-08-03 19:53 | CON ---
DATE: 08/03/2017 REFERRING PHYSICIAN: The hospitalist onboard. CHIEF COMPLAINT: Hearing loss. HISTORY OF PRESENT ILLNESS: This is a 71-year-old female with a past medical history of hypertension, coronary artery disease with stents in the past, diabetes, hyperlipidemia and anemia who presented to the ER with nasal congestion for past 10 days. Subsequently, while in the hospital, she was diagnosed with pneumonia and is receiving appropriate antibiotic management. While in the hospital, the patient started complaining of bilateral ear pain which is greater on the left than the right along with hearing loss which was greater on the left. The patient does not speak [place]; therefore, the son was present at bedside who was able to translate fluently. The patient reports she feels wind and pressure-like sensation in the left ear and not so much in the right ear. She also appreciates hearing loss in the left side which started about 10 days ago. The patient reports using Q-tips daily due to itchiness of the ears. The patient denies any tinnitus or ringing of the ears and she also denies any discharge from the ears bilaterally. The patient denies ever having this type of issue in the past. She reports that 10 days ago she had severe cough along with runny nose and went to see her primary care doctor who diagnosed her with upper respiratory tract infection and sinus congestion. She was placed on Zofran and Bactrim, but per the patient, that did not help her symptoms. The patient currently does not feel nasal congestion or any discharge. She denies any dysphagia or odynophagia. PAST MEDICAL HISTORY: Hypertension, hyperlipidemia, diabetes, coronary artery disease with stent placement about 10 years ago. PAST SURGICAL HISTORY: Hysterectomy and appendectomy without any complications. ALLERGIES: NO KNOWN DRUG ALLERGIES. MEDICATIONS: As per med rec. SOCIAL HISTORY: She lives at home with her and her son. REVIEW OF SYSTEMS: All 10 review of systems were reviewed and all negative except per HPI. PHYSICAL EXAMINATION: GENERAL: AAO x3. In no acute distress, lying comfortably in bed. VITAL SIGNS: Temperature is 97.1, heart rate is 78, blood pressure is 125/79, respirations 18 and oxygen saturation is 98% on room air. HEENT: Ears; right external auditory canal is patent. There is no tenderness to the external auricle. The tympanic membrane is visualized to be intact. No perforations. No erythema. Slight retraction appreciated. Left external ear is nontender. The external auditory canal is patent and without any cerumen. Tympanic membrane is visualized to have a perforation in the central compartment about 10%. The ear does not look to be draining. No signs of effusion or any mucopurulent debris in the middle ear. Nose; nasal cavity is pink bilaterally. There is a septal deviation appreciated to the right side. A small nasal drainage is appreciated within the turbinates bilaterally. Mild to moist mucous membrane. No masses or lesions. The patient has poor dentition. No postnasal drip is appreciated. NECK: No lymphadenopathy appreciated. No masses or lesions. LABORATORY DATA: White blood cells 9.8, hemoglobin 12.2, hematocrit 33.7 and platelets . ASSESSMENT: This is a 71-year-old female with a past medical history of hypertension, coronary artery disease, diabetes, hyperlipidemia, who presented to [facility] with sinus congestion with hearing loss likely secondary to left tympanic membrane perforation and sinus congestion causing eustachian tube dysfunction. PLAN: 1. Ciprodex drops to the left ear three drops, twice a day for 7 days. 2. Flonase for sinus congestion and eustachian tube dysfunction, 1 puff to each nostril twice a day for 2 weeks. 3. Nasal saline rinses twice a day for 2 weeks. 4. The patient is recommended and educated to avoid Q-tips which likely cause her perforation of the left tympanic membrane. 5. The patient to follow up with Dr. Lopez as outpatient in 2 weeks after discharge. 6. The patient will likely benefit from audiogram to understand baseline hearing and progression of hearing. FINAL DIAGNOSES: 1. Tympanic membrane perforation of the left ear. 2. Eustachian tube dysfunction. 3. Nasal congestion due to upper respiratory tract infection. 4. Bilateral otalgia. The plan was discussed with the patient and the son who is at the bedside. We thank you in allowing us to participate in this patient's care. Regis Lopez DO
[2017-08-03] MEDS: Bismuth Subsalicylate 262 mg/15 ml Sus (240 ml) PO PRN (21:46)
[2017-08-04] MEDS: Albuterol-Ipratrop 3 mg / 0.5 (3 ml) UD IH SCH ×5 (01:37→20:15)
[2017-08-04] MEDS ORDERED: guaiFENesin 200 mg/10 ml Syrup UD PO STA (03:54)
--- NOTE | 2017-08-04 08:07 | HP ---
CHIEF COMPLAINT: Coughing, congested, cold. HISTORY OF PRESENT ILLNESS: Ms. Kayleigh Brito is a 71-year-old female with past medical history of cardiac stenting 10 years ago, diabetes mellitus uncontrolled, hypertension, hypercholesterolemia, anemia, came to the emergency room via EMS accompanied by son for generalized sickness, which began 10 days ago. The patient's son states that she has been sick with coughing, vomiting, diarrhea for 10 days; three days ago, had sickness. She came in my office. I offered her ER visit and hospitalization, but the patient refused. I gave her Zofran and Bactrim, which did not help the patient's symptoms. The patient failed outpatient treatment, and I recommended her if situation did not get better, go to [facility] emergency room and that is what she did. The patient is coughing away the sputum, subjected fever, nasal congestion, continuing constant vomiting and diarrhea after eating with no blood. The patient denies any chest pain, headache, hematuria or hematochezia. PAST MEDICAL HISTORY: Diabetes mellitus, uncontrolled; pulmonary artery disease with cardiac stenting; hypertension; hysterectomy. FAMILY HISTORY: Father and mother noncontributory. HABITS: Never smoked. No drugs. No ethanol. ALLERGIES: THE PATIENT IS NOT ALLERGIC TO ANY MEDICATIONS. HOME MEDICATIONS: Aspirin, ferrous sulfate, metformin, metoprolol, antibiotics, enalapril, ranitidine and Zofran. REVIEW OF SYSTEMS: The patient seen and examined on the bedside, looking comfortable, but still feeling feverish, congested, sputum production, having still diarrhea, nausea, vomiting. No headache. No hematuria or hematochezia. PHYSICAL EXAMINATION: VITAL SIGNS: Temperature 98.5, pulse 97, respiratory rate 18, blood pressure 135/85 and pulse oximetry 97%. HEENT: Head normocephalic and atraumatic. Eyes PERRLA. Extraocular muscles intact. Conjunctivae clear. Nose patent. Mucous membrane moist. NECK: Supple. No carotid bruit, JVD or thyromegaly. CHEST: Bilaterally symmetrical. HEART: S1 and S2 positive. LUNGS: Clear to auscultation. ABDOMEN: Soft. Bowel sounds positive. No organomegaly. EXTREMITIES: No edema. No cyanosis. NEUROLOGICAL: The patient is awake and alert. Moving all 4 extremities. No focal deficit. LABORATORY DATA: White blood cells 9.8, hemoglobin 11.2, hematocrit 33.7 and platelets 244. Sodium 133, potassium 4.6, BUN 25, creatinine 1.1 and glucose 218. ASSESSMENT AND PLAN: Ms. Kayleigh Brito is a 71-year-old female with anemia, hyperglycemia, rule out sepsis, bronchitis, pneumonia, failed outpatient treatment with antibiotics and Zofran. Admitted the patient. We will call Cardiology consult and Gastroenterology consult. Started on double antibiotics. History of coronary artery disease, cardiac stenting. The patient has psych problems. Gastrointestinal and deep venous thrombosis prophylaxis. Repeat labs. We will follow up. Candie Guido MD MTDD
[2017-08-04] MEDS: Insulin Reg-LOW-Coverage SC SCH ×4 (08:33→21:31)
[2017-08-04] MEDS: Ciprofloxacin/Dexamethasone OTIC SUSP AS SCH ×2 (09:10→17:36)
[2017-08-04] MEDS: Fluticasone Nasal 50 mcg/Spray NS SCH ×2 (09:11→17:36)
--- NOTE | 2017-08-04 09:38 | PN ---
DATE: 08/02/2017 SUBJECTIVE: The patient is a 71-year-old female. The patient seen and examined on the bedside. Looking comfortable. Complaining about a little bit diarrhea. No nausea or vomiting. Cough is better. Shortness of breath is better. No hematuria or hematochezia. No fever. No chills. PHYSICAL EXAMINATION: VITAL SIGNS: Temperature 98.2, pulse 77, blood pressure 113/55 and respiratory rate is 20. HEENT: Head is normocephalic and atraumatic. Eyes; PERRLA. Extraocular muscles are intact. Conjunctivae clear. Nose patent. NECK: Supple. No carotid bruit, JVD or thyromegaly. CHEST: Bilaterally symmetrical. HEART: S1 and S2 positive. LUNGS: Clear to auscultation. ABDOMEN: Soft. Bowel sounds present. No organomegaly. EXTREMITIES: No edema. No cyanosis. NEUROLOGIC: The patient is awake and alert. Moving all four extremities. No focal deficits. MEDICATIONS: DuoNeb, Ecotrin, iron, Glucophage, Lipitor, Lopressor, Pepcid, Pepto-Bismol, Rocephin, NS, Tylenol, Zestril, azithromycin and Zofran. LABORATORY DATA: Blood culture no growth after 24 hours. White blood cell is 8.3, hemoglobin 9.1, hematocrit 28.6 and platelets 411. Sodium 137, potassium 4.3, BUN 13, creatinine 0.8, glucose 207, iron 33, cholesterol 111. TSH 0.16. ASSESSMENT AND PLAN: Kayleigh Coronado is a 71-year-old lady with anemia, diabetes mellitus, iron deficiency, rule out hyperthyroidism, seen by Dr. Bin Black, Infectious Disease, history of coronary artery disease status post cardiac stenting, hypercholesterolemia, pneumonia of the left lower lobe, rule out urinary tract infection, pancultures and blood cultures were sent, still waiting for the result. Continue Rocephin and azithromycin as per Infectious Disease and supportive care. Gastrointestinal and deep venous thrombosis prophylaxis. Sent stool for Clostridium difficile toxin colitis x3. Pepto-Bismol given. Zofran given. We will follow up. Candie Guido MD [facility] # [id number] [place]
[2017-08-04] MEDS: Azithromycin 500MG/NS 250ml 500 MG/250 ML BAG IVPB SCH (10:14)
[2017-08-04] MEDS: cefTRIAXone 1 gm 1 GM/100 ML BAG IVPB SCH (10:14)
--- NOTE | 2017-08-04 16:13 | CP.PCM.PN ---
Subjective - Date & Time of Evaluation Date of Evaluation: 08/04/17 Time of Evaluation: 13:00 - Subjective Subjective: Infectious Disease Follow Up: August 04, 2017 71 yo female with 10 days of feeling ill. During this time the patient had nausea, vomiting, and diarrhea. The patient received Zofran and Bactrim from her PMD but it did not help her. She came to the ER under instruction by her PMD. Chest X-ray shows mild patchy infiltrate in left lower lung. Possible UTI. Started on Rocephin and Azithromycin in the hospital. Cultures taken and pending. The patient's medical issues include DM, HTN, CAD requiring stents, HLD, and anemia. No diarrhea today. Patient states that she feels better. Ruptured left eardrum. Objective - Vital Signs/Intake and Output Vital Signs (last 24 hours): Temp Pulse Resp BP Pulse Ox 97.9 F 72 18 151/80 H 99 08/04/17 08:44 08/04/17 09:11 08/04/17 08:44 08/04/17 09:11 08/04/17 08:44 Intake and Output: 08/04/17 08/04/17 06:59 18:59 Intake Total 420 840 Balance 420 840 - Medications Medications: Current Medications Acetaminophen (Tylenol 325mg Tab) 650 mg PO Q4H PRN PRN Reason: pain fever Last Admin: 08/03/17 21:44 Dose: 650 mg Albuterol/Ipratropium (Duoneb 3 Mg/0.5 Mg (3 Ml) Ud) 3 ml IH [id number] [facility] Last Admin: 08/04/17 13:56 Dose: 3 ml Aspirin (Ecotrin) 81 mg PO DAILY [facility] Last Admin: 08/04/17 09:11 Dose: 81 mg Atorvastatin Calcium (Lipitor) 20 mg PO DIN [facility] Last Admin: 08/03/17 17:26 Dose: 20 mg Bismuth Subsalicylate (Pepto-Bismol) 68 mg PO TID PRN PRN Reason: Loose stools Last Admin: 08/03/17 21:46 Dose: 68 mg Ciprofloxacin/Dexamethasone (Ciprodex Otic) 3 drop BID [facility] Last Admin: 08/04/17 09:10 Dose: 3 drop Famotidine (Pepcid) 20 mg PO BID [facility] Last Admin: 08/04/17 09:11 Dose: 20 mg Ferrous Sulfate (Feosol) 324 mg PO DAILY [facility] Last Admin: 08/04/17 09:11 Dose: 324 mg Fluticasone Propionate (Flonase) 1 actuation NS BID [facility] Last Admin: 08/04/17 09:11 Dose: 1 spr Ceftriaxone Sodium (Rocephin 1 Gram Ivpb) 1 gm in 100 mls @ 100 mls/hr IVPB DAILY [facility] PRN Reason: Protocol Last Admin: 08/04/17 10:14 Dose: 100 mls/hr Azithromycin (Zithromax 500mg In Ns) 500 mg in 250 mls @ 167 mls/hr IVPB DAILY [facility] Last Admin: 08/04/17 10:14 Dose: 167 mls/hr Insulin Human Regular (Humulin R Low) 0 units SC ACHS [facility] PRN Reason: Protocol Last Admin: 08/04/17 12:49 Dose: 2 units Lisinopril (Zestril) 10 mg PO DAILY [facility] Last Admin: 08/04/17 09:11 Dose: 10 mg Metformin HCl (Glucophage) 1,000 mg PO BID [facility] Last Admin: 08/04/17 09:11 Dose: 1,000 mg Metoprolol Tartrate (Lopressor) 25 mg PO BRKDIN [facility] Last Admin: 08/04/17 08:34 Dose: 25 mg Ondansetron HCl (Zofran Inj) 4 mg IVP Q6 PRN PRN Reason: Nausea/Vomiting - Labs Labs: 08/02/17 06:00 08/02/17 06:00 - Constitutional Appears: Non-toxic, No Acute Distress - Head Exam Head Exam: ATRAUMATIC, NORMOCEPHALIC - Eye Exam Eye Exam: EOMI, PERRL Pupil Exam: NORMAL ACCOMODATION, PERRL - ENT Exam ENT Exam: Mucous Membranes Moist, Normal External Ear Exam, TM's Normal Bilaterally - Neck Exam Neck Exam: Full ROM, Normal Inspection - Respiratory Exam Respiratory Exam: Clear to Ausculation Bilateral, NORMAL BREATHING PATTERN. absent: Rales, Rhonchi, Wheezes - Cardiovascular Exam Cardiovascular Exam: REGULAR RHYTHM, RRR, +S1, +S2 - GI/Abdominal Exam GI & Abdominal Exam: Soft, Normal Bowel Sounds. absent: Distended, Tenderness - Extremities Exam Extremities Exam: Normal Inspection. absent: Full ROM - Neurological Exam Neurological Exam: Alert, Awake, CN II-XII Intact, Oriented x3 - Psychiatric Exam Psychiatric exam: Normal Affect, Normal Mood - Skin Skin Exam: Intact, Normal Color Assessment and Plan - Assessment and Plan (Free Text) Assessment: 71 yo female who presented with a ten day history of cough, nausea, vomiting, and diarrhea. The patient failed outpatient antibiotics of Bactrim. Given Azithromycin and Rocephin in hospital. Chest X-ray showing mild patchy infiltrate of the left lower lobe... possible pneumonia. Mild changed in urinalysis. Weak evidence for UTI. Elizalde cultures of blood and urine sent... awaiting results. Will continue on Rocephin and Azithromycin for now. Supportive care. Diarrhea appears to have resolved. Cultures so far are negative. C. diff not done as no sample available for testing (diarrhea resolved). Patient states that she feels better at this time. She has a new complaint of ear pain and was found to have a ruptured left ear drum yesterday. No fevers or leukocytosis at this time. Will monitor. Thank you for allowing me to participate in the care of the patient, we will follow with you.
[2017-08-04] MEDS ORDERED: cefTRIAXone 1 gm 1 GM/100 ML BAG IVPB SCH (16:27)
[2017-08-04 17:38] VITALS: PULSE 80
[2017-08-04 20:12] VITALS: RESP 20; O2SAT 98
--- NOTE | 2017-08-04 23:13 | PN ---
SUBJECTIVE: The patient is a 71-year-old female. The patient is seen and examined at the bedside, looking comfortable. Still coughing, but less. No shortness of breath. No nausea or vomiting. Diarrhea is better. No headache. No dizziness. No chest pain. No palpitations. PHYSICAL EXAMINATION: VITAL SIGNS: Temperature 97.9, pulse 72, blood pressure 151/80, respiratory rate 18. HEENT: Head; normocephalic and atraumatic. Eyes; PERRLA. Extraocular muscles intact. Conjunctivae clear. Nose patent. Mucous membrane moist. NECK: Supple. No carotid bruits, no JVD, or thyromegaly. CHEST: Bilateral symmetrical. HEART: S1 and S2 positive. LUNGS: Clear to auscultation. ABDOMEN: Soft. Bowel sounds present. No organomegaly. EXTREMITIES: No edema. No cyanosis. NEUROLOGIC: The patient is awake, alert, and moving all four extremities. No focal deficit. MEDICATIONS: Ciprodex Otic, albuterol, aspirin, Feosol, Flonase, Glucophage, insulin, Lipitor, Lopressor, Pepcid, Pepto-Bismol, Rocephin, Tylenol, Zestril, Zithromax, and Zofran. LABORATORY DATA: White blood cells 8.3, hemoglobin 9.1, and hematocrit 28.6. ASSESSMENT AND PLAN: Ms. Joann Coronado is a 71-year-old lady with anemia, diabetes mellitus uncontrolled, proteinuria, urinary tract infection. Influenza type A and B is negative. Seen by Dr. Bin Black, Infectious Disease. The patient failed outpatient treatment with antibiotic of Bactrim, given in the hospital. Chest x-ray shows mild patchy infiltrates of the left lower lobe, possible pneumonia. Mild change in urinalysis, weak evidence of urinary tract infection as per Dr. Black. Diarrhea appears to be resolved. Culture so far negative for Clostridium difficile. The patient says that she feels better. The patient has ear pain, getting Ciprodex for that. Looks like the patient had ruptured left eardrum. Reviewed Dr. Black's notes. Reviewed Dr. Blackmon's notes also. According to him, continue Zithromax and Rocephin. The patient is on Pepto-Bismol on p.r.n. basis. The patient is tolerating diet well. As soon as ID will make antibiotics p.o., we will discharge the patient and we will followup. Candie Guido MD MTDJesús
[2017-08-05] MEDS: Albuterol-Ipratrop 3 mg / 0.5 (3 ml) UD IH SCH ×2 (01:20→07:46)
--- NOTE | 2017-08-05 03:21 | PN ---
DATE: 08/04/2017 SUBJECTIVE: This patient was seen and evaluated earlier. The patient feels better, able to tolerate the diet. PHYSICAL EXAMINATION VITAL SIGNS: Temperature 98.4, pulse 80, blood pressure is 113/69. IMPRESSION: This 71-year-old patient admitted with cough, nausea, vomiting. She was treated as an outpatient for urinary tract infection. Symptoms persisted of the fever. The patient was here, admitted. The patient is tolerating the diet. Denies diarrhea. On examination, the patient has been . I would recommend this. We will continue the present antibiotic regimen by the Infectious Disease. Follow up the stool for C. diff. Maria E Blackmon MD
[2017-08-05 08:20] VITALS: TEMP 98
[2017-08-05] MEDS: Insulin Reg-LOW-Coverage SC SCH (08:31)
[2017-08-05] MEDS: Ciprofloxacin/Dexamethasone OTIC SUSP AS SCH (10:57)
[2017-08-05] MEDS: Fluticasone Nasal 50 mcg/Spray NS SCH (10:58)
[2017-08-05 11:01] VITALS: BP 170/89
--- NOTE | 2017-08-05 11:42 | CP.PCM.PN ---
Subjective - Date & Time of Evaluation Date of Evaluation: 08/05/17 Time of Evaluation: 10:30 - Subjective Subjective: Infectious Disease Follow Up: August 05, 2017 71 yo female with 10 days of feeling ill. During this time the patient had nausea, vomiting, and diarrhea. The patient received Zofran and Bactrim from her PMD but it did not help her. She came to the ER under instruction by her PMD. Chest X-ray shows mild patchy infiltrate in left lower lung. Possible UTI. Started on Rocephin and Azithromycin in the hospital. Cultures taken and pending. The patient's medical issues include DM, HTN, CAD requiring stents, HLD, and anemia. No diarrhea today. Patient states that she feels better. Ruptured left eardrum. No additional complaints. Objective - Vital Signs/Intake and Output Vital Signs (last 24 hours): Temp Pulse Resp BP Pulse Ox 98 F 80 20 170/89 H 98 08/05/17 08:19 08/05/17 10:59 08/05/17 08:19 08/05/17 10:59 08/05/17 08:19 Intake and Output: 08/05/17 08/05/17 06:59 18:59 Intake Total 860 Balance 860 - Medications Medications: Current Medications Acetaminophen (Tylenol 325mg Tab) 650 mg PO Q4H PRN PRN Reason: pain fever Last Admin: 08/03/17 21:44 Dose: 650 mg Albuterol/Ipratropium (Duoneb 3 Mg/0.5 Mg (3 Ml) Ud) 3 ml IH [id number] [facility] Last Admin: 08/05/17 07:46 Dose: 3 ml Aspirin (Ecotrin) 81 mg PO DAILY [facility] Last Admin: 08/05/17 10:58 Dose: 81 mg Atorvastatin Calcium (Lipitor) 20 mg PO DIN [facility] Last Admin: 08/04/17 17:37 Dose: 20 mg Bismuth Subsalicylate (Pepto-Bismol) 68 mg PO TID PRN PRN Reason: Loose stools Last Admin: 08/03/17 21:46 Dose: 68 mg Ciprofloxacin/Dexamethasone (Ciprodex Otic) 3 drop BID [facility] Last Admin: 08/05/17 10:57 Dose: 3 drop Famotidine (Pepcid) 20 mg PO BID [facility] Last Admin: 08/05/17 10:58 Dose: 20 mg Ferrous Sulfate (Feosol) 324 mg PO DAILY [facility] Last Admin: 08/05/17 10:58 Dose: 324 mg Fluticasone Propionate (Flonase) 1 actuation NS BID [facility] Last Admin: 08/05/17 10:58 Dose: 1 spr Azithromycin (Zithromax 500mg In Ns) 500 mg in 250 mls @ 167 mls/hr IVPB DAILY [facility] Last Admin: 08/04/17 10:14 Dose: 167 mls/hr Ceftriaxone Sodium (Rocephin 1 Gram Ivpb (D5w)) 1 gm in 100 mls @ 100 mls/hr IVPB DAILY [facility] PRN Reason: Protocol Last Admin: 08/05/17 10:59 Dose: 100 mls/hr Insulin Human Regular (Humulin R Low) 0 units SC ACHS [facility] PRN Reason: Protocol Last Admin: 08/05/17 08:31 Dose: Not Given Lisinopril (Zestril) 10 mg PO DAILY [facility] Last Admin: 08/05/17 10:59 Dose: 10 mg Metformin HCl (Glucophage) 1,000 mg PO BID [facility] Last Admin: 08/05/17 10:58 Dose: 1,000 mg Metoprolol Tartrate (Lopressor) 25 mg PO BRKDIN [facility] Last Admin: 08/05/17 08:34 Dose: 25 mg Ondansetron HCl (Zofran Inj) 4 mg IVP Q6 PRN PRN Reason: Nausea/Vomiting - Labs Labs: 08/02/17 06:00 08/02/17 06:00 - Constitutional Appears: Non-toxic, No Acute Distress - Head Exam Head Exam: ATRAUMATIC, NORMOCEPHALIC - Eye Exam Eye Exam: EOMI, PERRL Pupil Exam: NORMAL ACCOMODATION, PERRL - ENT Exam ENT Exam: Mucous Membranes Moist, Normal External Ear Exam, TM's Normal Bilaterally - Neck Exam Neck Exam: Full ROM, Normal Inspection - Respiratory Exam Respiratory Exam: Clear to Ausculation Bilateral, NORMAL BREATHING PATTERN. absent: Rales, Rhonchi, Wheezes - Cardiovascular Exam Cardiovascular Exam: REGULAR RHYTHM, RRR, +S1, +S2 - GI/Abdominal Exam GI & Abdominal Exam: Soft, Normal Bowel Sounds. absent: Distended, Tenderness - Extremities Exam Extremities Exam: Full ROM, Normal Inspection - Neurological Exam Neurological Exam: Alert, Awake, CN II-XII Intact, Oriented x3 - Psychiatric Exam Psychiatric exam: Normal Affect, Normal Mood - Skin Skin Exam: Intact, Normal Color Assessment and Plan - Assessment and Plan (Free Text) Assessment: 71 yo female who presented with a ten day history of cough, nausea, vomiting, and diarrhea. The patient failed outpatient antibiotics of Bactrim. Given Azithromycin and Rocephin in hospital. Chest X-ray showing mild patchy infiltrate of the left lower lobe... possible pneumonia. Mild changed in urinalysis. Weak evidence for UTI. Elizalde cultures of blood and urine sent... awaiting results. Will continue on Rocephin and Azithromycin for now. Supportive care. Diarrhea appears to have resolved. Cultures so far are negative. C. diff not done as no sample available for testing (diarrhea resolved). Patient states that she feels better at this time. She has a new complaint of ear pain and was found to have a ruptured left ear drum yesterday. No fevers or leukocytosis at this time. Will monitor. When ready for discharge the patient can receive Omnicef 300mg PO BID for 7-10 days more. Thank you for allowing me to participate in the care of the patient, we will follow with you.
--- NOTE | 2017-08-05 12:48 | CP.PCM.PN ---
Subjective - Date & Time of Evaluation Date of Evaluation: 08/05/17 Time of Evaluation: 10:00 - Subjective Subjective: Seen and examined at the bedside this a.m., no acute overnight events reported. Patient denies nausea, vomiting, or abdominal pain no diarrhea. Patient reported to have good appetite. No reports of overt GI bleed. Objective - Vital Signs/Intake and Output Vital Signs (last 24 hours): Temp Pulse Resp BP Pulse Ox 98 F 80 20 170/89 H 98 08/05/17 08:19 08/05/17 10:59 08/05/17 08:19 08/05/17 10:59 08/05/17 08:19 Intake and Output: 08/05/17 08/05/17 06:59 18:59 Intake Total 860 Balance 860 - Medications Medications: Current Medications Acetaminophen (Tylenol 325mg Tab) 650 mg PO Q4H PRN PRN Reason: pain fever Last Admin: 08/03/17 21:44 Dose: 650 mg Albuterol/Ipratropium (Duoneb 3 Mg/0.5 Mg (3 Ml) Ud) 3 ml IH [id number] [facility] Last Admin: 08/05/17 07:46 Dose: 3 ml Aspirin (Ecotrin) 81 mg PO DAILY [facility] Last Admin: 08/05/17 10:58 Dose: 81 mg Atorvastatin Calcium (Lipitor) 20 mg PO DIN [facility] Last Admin: 08/04/17 17:37 Dose: 20 mg Bismuth Subsalicylate (Pepto-Bismol) 68 mg PO TID PRN PRN Reason: Loose stools Last Admin: 08/03/17 21:46 Dose: 68 mg Ciprofloxacin/Dexamethasone (Ciprodex Otic) 3 drop BID [facility] Last Admin: 08/05/17 10:57 Dose: 3 drop Famotidine (Pepcid) 20 mg PO BID [facility] Last Admin: 08/05/17 10:58 Dose: 20 mg Ferrous Sulfate (Feosol) 324 mg PO DAILY [facility] Last Admin: 08/05/17 10:58 Dose: 324 mg Fluticasone Propionate (Flonase) 1 actuation NS BID [facility] Last Admin: 08/05/17 10:58 Dose: 1 spr Azithromycin (Zithromax 500mg In Ns) 500 mg in 250 mls @ 167 mls/hr IVPB DAILY [facility] Last Admin: 08/04/17 10:14 Dose: 167 mls/hr Ceftriaxone Sodium (Rocephin 1 Gram Ivpb (D5w)) 1 gm in 100 mls @ 100 mls/hr IVPB DAILY [facility] PRN Reason: Protocol Last Admin: 08/05/17 10:59 Dose: 100 mls/hr Insulin Human Regular (Humulin R Low) 0 units SC ACHS [facility] PRN Reason: Protocol Last Admin: 08/05/17 08:31 Dose: Not Given Lisinopril (Zestril) 10 mg PO DAILY [facility] Last Admin: 08/05/17 10:59 Dose: 10 mg Metformin HCl (Glucophage) 1,000 mg PO BID [facility] Last Admin: 08/05/17 10:58 Dose: 1,000 mg Metoprolol Tartrate (Lopressor) 25 mg PO BRKDIN [facility] Last Admin: 08/05/17 08:34 Dose: 25 mg Ondansetron HCl (Zofran Inj) 4 mg IVP Q6 PRN PRN Reason: Nausea/Vomiting - Labs Labs: 08/02/17 06:00 08/02/17 06:00 - Constitutional Appears: No Acute Distress - Head Exam Head Exam: NORMOCEPHALIC - Eye Exam Eye Exam: Normal appearance. absent: Scleral icterus - ENT Exam ENT Exam: Mucous Membranes Moist - Neck Exam Neck Exam: Normal Inspection - Respiratory Exam Respiratory Exam: NORMAL BREATHING PATTERN. absent: Respiratory Distress - Cardiovascular Exam Cardiovascular Exam: +S1, +S2 - GI/Abdominal Exam GI & Abdominal Exam: Soft, Normal Bowel Sounds. absent: Guarding, Tenderness, Organomegaly, Rebound - Extremities Exam Extremities Exam: absent: Pedal Edema - Neurological Exam Neurological Exam: Alert, Awake, Oriented x3 Assessment and Plan - Assessment and Plan (Free Text) Assessment: Assessment: Pneumonia Resolved diarrhea, stool C. diff negative History of UTI Diabetes mellitus Dyslipidemia Plan: Continue diet as tolerated continue Pepcid On ceftriaxone On Zithromax on iron supplement for DC home, antibiotics as per ID Seen and discussed with Dr. Blackmon.
--- NOTE | 2017-08-06 04:07 | DS ---
CHIEF COMPLAINT: Coughing, congestion, and cold. HISTORY OF PRESENT ILLNESS: Ms. Cliff David is a 71-year-old female with past medical history of cardiac stenting 10 years ago, diabetes mellitus, uncontrolled hypertension, hypercholesterolemia, and anemia, came to the Emergency Room by EMS complaining of generalized weakness, sickness, nausea, vomiting, coughing, shortness of breath. Actually, the patient was seen in my office a couple days ago. Antibiotics were given, but the patient never improved. We failed outpatient treatment that is why we admitted the patient in the hospital. A chest x-ray done, which shows pneumonia. The patient started to have diarrhea, GI consult called with Dr. Blackmon, diarrhea resolved. ID consult called with Dr. Bin Black, he gave IV antibiotics, the patient improved. Now, he cleared the patient for discharge with p.o. antibiotics. The patient's son was questioning about patient's hearing problem. Dr. Lopez, ENT consult called. They saw the patient and wanted to follow up as outpatient. Today, we are discharging the patient home with follow up primary care physician, ENT and Infectious Disease. PAST MEDICAL HISTORY: Diabetes mellitus, uncontrolled; coronary artery disease with cardiac stenting, hypertension, and hysterectomy. FAMILY HISTORY: Father and mother noncontributory. HABITS: Never smoked. No drugs. No ethanol. ALLERGIES: THE PATIENT IS NOT ALLERGIC TO ANY MEDICATION. HOME MEDICATIONS: Aspirin, ferrous sulfate, metformin, metoprolol, antibiotic, enalapril, ranitidine and Zofran. REVIEW OF SYSTEMS: The patient seen and examined on the bedside, looking comfortable. No nausea, vomiting, or diarrhea. No hematuria or hematochezia. No swelling of the legs. No chest pain. No palpitations. No headache. No dizziness. No fever. PHYSICAL EXAMINATION: VITAL SIGNS: Temperature 98, pulse 80, blood pressure 170/89, and respiratory rate 20. HEENT: Head is normocephalic and atraumatic. Eyes, PERRLA. Extraocular muscles intact. Conjunctivae clear. Nose patent. Mucous membranes moist. NECK: Supple. No carotid bruits. No JVD or thyromegaly. CHEST: Bilaterally symmetrical. HEART: S1 and S2 positive. LUNGS: Clear to auscultation. ABDOMEN: Soft. Bowel sounds present. No organomegaly. EXTREMITIES: No edema. No cyanosis. NEUROLOGIC: The patient is awake and alert. Moving all four extremities. No focal deficits. LABORATORY DATA: White blood cell is 8.3, hemoglobin 9.1, hematocrit 28.6 and platelets 411. Chemistry: Sodium 137, potassium 4.3, BUN 13, creatinine 0.8, glucose 216, and iron 33. ASSESSMENT AND PLAN: Ms. Joann Coronado is a 71-year-old lady with anemia, hyperglycemia, uncontrolled diabetes mellitus, iron deficiency, rule out hyperthyroidism, proteinuria, urinary tract infection, admitted for bronchitis, failed outpatient treatment, rule out pneumonia. The patient was seen by Dr. Bin Black, given antibiotics Rocephin and azithromycin, completed course. According to Dr. Black, the patient can go home with Omnicef 300 p.o. b.i.d. for 7-10 days. Seen by GI, Dr. Blackmon, cleared the patient. Sees by Dr. Lopez, ENT cleared the patient. Discussion done with the patient's son and decided the patient to follow up with primary care physician and ENT. Candie Guido MD
== END 2017-08-05 12:59 | disposition home or self-care (01) | DRG 89 ==
LOC: ED 12:03 → ERH 14:10 → 3RNO 16:59
PROVIDERS: ADMIT Internal Medicine; ATTEND Internal Medicine
PROC: 3E0F7GC Introduction of Other Therapeutic Substance into Respiratory Tract, Via Natural or Artificial Opening (ICD-10-PCS; principal; 2017-08-01)
DX: J18.9 Pneumonia, unspecified organism (principal); E11.65 Type 2 diabetes mellitus with hyperglycemia; N39.0 Urinary tract infection, site not specified; K52.9 Noninfective gastroenteritis and colitis, unspecified; I25.10 Atherosclerotic heart disease of native coronary artery without angina pectoris; E78.00 Pure hypercholesterolemia, unspecified; I10 Essential (primary) hypertension; D50.9 Iron deficiency anemia, unspecified; H69.90 Unspecified Eustachian tube disorder, unspecified ear; R80.9 Proteinuria, unspecified; H91.90 Unspecified hearing loss, unspecified ear; Z95.5 Presence of coronary angioplasty implant and graft; Z90.710 Acquired absence of both cervix and uterus

== ENCOUNTER 2018-12-11 15:50 | Inpatient (IN) | payer MEDICAID ==
[2018-12-11 16:36] LABS: VENOUS BLOOD GAS BASE EXCESS 2.7 mmol/L (0.0-2.0); VENOUS BLOOD GAS PO2 29 mm/Hg (30-55); VENOUS BLOOD PH 7.37 (7.32-7.43)
[2018-12-11] MEDS ORDERED: Sodium Chloride 0.9% 1,000 ML IV STA ×2 (16:43→18:41)
--- NOTE | 2018-12-11 16:47 | ED PDOC ---
Arrival/HPI - General Chief Complaint: GI Problem Time Seen by Provider: 12/11/18 15:57 Historian: Patient, Family - History of Present Illness Narrative History of Present Illness (Text): 12/11/18 16:22 73 year old female, whose past medical history includes paranoia, heart stents (10+ years), diabetes, hypertension, hyperlipidemia, presents to the emergency department accompanied by family for complaints of nausea, vomiting, diarrhea for the past 5 days Patient was found on the floor yesterday and does not recall what happened. Patient was seen and evaluated by Dr. Guido 4 days ago and was given antibiotics with no relief. Tyree any recent travel. Patient reports cough, but denies any fever, chills, chest pain, shortness of breath, urinary symptoms, back pain, neck pain, dizziness, or any other complaints. PMD: Dr. Guido Symptom Onset: Gradual Symptom Course: Unchanged Activities at Onset: Light Context: Home Past Medical History - Provider Review Nursing Documentation Reviewed: Yes - Past History Past History: No Previous - Infectious Disease Hx of Infectious Diseases: None - Tetanus Immunization Tetanus Immunization: Up to Date - Cardiac Hx Hypertension: Yes - Endocrine/Metabolic Hx Diabetes Mellitus Type 2: Yes - Musculoskeletal/Rheumatological Hx Falls: Yes - Psychiatric Hx Depression: No Hx Emotional Abuse: No Hx Physical Abuse: No Hx Substance Use: No - Surgical History Hx Coronary Stent: Yes Hx Hysterectomy: Yes - Suicidal Assessment Feels Threatened In Home Enviroment: No Family/Social History - Physician Review Nursing Documentation Reviewed: Yes Family/Social History: No Known Family HX Smoking Status: Never Smoked Hx Alcohol Use: No Hx Substance Use: No Hx Substance Use Treatment: No Allergies/Home Meds Allergies/Adverse Reactions: Allergies No Known Allergies Allergy (Verified 12/11/18 15:54) Home Medications: Home Meds Medication Instructions Recorded Confirmed Amoxicillin/Potassium Clav 1 tab PO Q12 12/11/18 12/11/18 [Augmentin 500-125 Tablet] Folic Acid 1 mg PO DAILY 12/11/18 12/11/18 Glipizide [Glipizide ER] 10 mg PO DAILY 12/11/18 12/11/18 Levocetirizine Dihydrochloride 5 mg PO DAILY 12/11/18 12/11/18 [24Hr Allergy Relief] Metformin HCl [Glucophage] 1,000 mg PO BID 12/11/18 12/11/18 Metoprolol Tartrate [Lopressor] 25 mg PO DAILY 12/11/18 12/11/18 Montelukast [Singulair] 10 mg PO DAILY 12/11/18 12/11/18 Multivitamin [Daily Rafa] 1 tab PO DAILY 12/11/18 12/11/18 Potassium Chloride [Klor-Con M10] 10 meq PO DAILY 12/11/18 12/11/18 Ranitidine HCl [Zantac] 150 mg PO BID 12/11/18 12/11/18 Review of Systems - Physician Review All systems were reviewed & negative as marked: Yes - Review of Systems Constitutional: absent: Fevers, Other (chills) ENT: Sore Throat Respiratory: Cough. absent: SOB Cardiovascular: absent: Chest Pain Gastrointestinal: Diarrhea, Nausea, Vomiting. absent: Abdominal Pain Genitourinary Female: absent: Dysuria, Frequency, Hematuria Musculoskeletal: absent: Back Pain, Neck Pain Neurological: absent: Headache, Dizziness Physical Exam Vital Signs Reviewed: Yes Vital Signs Temp Pulse Resp BP Pulse Ox 12/11/18 15:59 99.5 F 82 18 122/95 H 97 Temperature: Afebrile Blood Pressure: Normal Pulse: Regular Respiratory Rate: Normal Appearance: Positive for: Well-Appearing, Non-Toxic, Comfortable Pain Distress: None Mental Status: Positive for: Alert and Oriented X 3 - Systems Exam Head: Present: Atraumatic, Normocephalic Pupils: Present: PERRL Extroacular Muscles: Present: EOMI Conjunctiva: Present: Normal Mouth: Present: Moist Mucous Membranes Neck: Present: Normal Range of Motion Respiratory/Chest: Present: Decreased Breath Sounds. No: Respiratory Distress, Accessory Muscle Use Cardiovascular: Present: Regular Rate and Rhythm, Normal S1, S2. No: Murmurs Abdomen: No: Tenderness, Distention, Peritoneal Signs Back: Present: Normal Inspection Upper Extremity: Present: Normal Inspection. No: Cyanosis, Edema Lower Extremity: Present: Normal Inspection. No: Edema Neurological: Present: GCS=15, Speech Normal Skin: Present: Warm, Dry, Normal Color. No: Rashes Psychiatric: Present: Alert, Oriented x 3, Normal Insight, Normal Concentration Medical Decision Making ED Course and Treatment: 12/11/18 16:30 Impression: 73 year old female presents complaining of nausea, vomiting, diarrhea, and cough for the past 4 days. Plan: -- VBG -- Labs -- CXR -- IV Fluids -- UA -- Reassess and disposition Prior Visits: Notes and results from previous visits were reviewed. Progress Notes: 12/11/18 17:24 EKG shows NSR at 88 BPM with LAD, incomplete RBBB, no ST elevation. No change from EKG 08/01/17. Interpreted by me. 12/11/18 18:20 Patient is no longer spitting in the bucket and is going to try PO. 12/11/18 19:[address] Guido who is aware and agrees with the plan. Accepts patient into her service for syncope. PROCEDURE: CT HEAD WITH CONTRAST Dictator : Trevon Roca MD Report Date : 12/11/2018 18:04:34 IMPRESSION: No acute intracranial hemorrhage. Moderate to fairly significant chronic white matter ischemic changes. Moderate central volume loss. Chest X-ray Dictator : Yulisa Winn MD Report Date : 12/11/2018 16:45:23 IMPRESSION: No focal consolidation. - Lab Interpretations I have reviewed the lab results: Yes - RAD Interpretation Radiology Orders: 12/11/18 16:17 CHEST PORTABLE [RAD] Stat Medical Records Director: Radiologist - Scribe Statement The provider has reviewed the documentation as recorded by the Scribe Bethanie Singh All medical record entries made by the Scribe were at my direction and personally dictated by me. I have reviewed the chart and agree that the record accurately reflects my personal performance of the history, physical exam, medical decision making, and the department course for this patient. I have also personally directed, reviewed, and agree with the discharge instructions and disposition Disposition/Present on Arrival - Present on Arrival Any Indicators Present on Arrival: No History of DVT/PE: No History of Uncontrolled Diabetes: No Urinary Catheter: No History of Decub. Ulcer: No History Surgical Site Infection Following: None - Disposition Have Diagnosis and Disposition been Completed?: Yes Diagnosis: Syncope, Vomiting Disposition: HOSPITALIZED Disposition Time: 19:06 Patient Plan: Admission Patient Problems: Current Active Problems Problem Status Onset Syncope Acute Vomiting Acute Condition: STABLE Forms: [employer] (Lebanese)
--- NOTE | 2018-12-11 16:48 | RAD ---
HISTORY: cough COMPARISON: Chest x-ray performed 08/01/17 TECHNIQUE: Chest, one view. FINDINGS: LUNGS: No focal consolidation. Please note that chest x-ray has limited sensitivity for the detection of pulmonary masses. PLEURA: No significant pleural effusion identified. No definite pneumothorax . CARDIOVASCULAR: Heart size appears within normal limits. Dense atherosclerotic calcifications of the aorta. OSSEOUS STRUCTURES: Degenerative changes. VISUALIZED UPPER ABDOMEN: Unremarkable. OTHER FINDINGS: None. IMPRESSION: No focal consolidation.
[2018-12-11 17:13] LABS: BASO # 0.02 K/mm3 (0.0-2.0); BASO % 0.2 % (0.0-3.0); EOS # 0.1 (0.0-0.7); EOS % 0.9 % (1.5-5.0); HEMOGLOBIN 10.9 g/dL (12.0-16.0); LYMPH % 9.8 % (22.0-35.0); MEAN CELL VOLUME 87.1 fl (80.0-105.0); MEAN CORPUSCULAR HEMOGLOBIN 28.1 pg (25.0-35.0); MEAN CORPUSCULAR HGB CONC 32.2 g/dl (31.0-37.0); MEAN PLATELET VOLUME 9.8 fl (7.0-11.0); MONO # 0.5 (0.1-0.6); RBC 3.88 10^6/uL (3.5-6.1); RED CELL DISTRIBUTION WIDTH 14.6 % (11.5-14.5)
[2018-12-11 18:07] LABS: ALB/GLOB RATIO 1.1 (1.1-1.8); ALBUMIN 3.8 g/dL (3.0-4.8); ALT/SGPT 18 U/L (7-56); AST/SGOT 21 U/L (14-36); BLOOD UREA NITROGEN 17 mg/dL (7-21); CALCIUM 9.6 mg/dL (8.4-10.5); GFR NON-AFRICAN AMERICAN > 60
--- NOTE | 2018-12-11 18:15 | CT ---
Date of service: 12/11/2018 PROCEDURE: CT HEAD WITH CONTRAST HISTORY: Syncope COMPARISON: No prior study available TECHNIQUE: Axial computed tomography images were obtained through the head/brain with intravenous contrast. Contrast dose: Radiation dose: Total exam DLP = 935.38 mGy-cm. This CT exam was performed using one or more of the following dose reduction techniques: Automated exposure control, adjustment of the mA and/or kV according to patient size, and/or use of iterative reconstruction technique. FINDINGS: HEMORRHAGE: No acute parenchymal, subarachnoid or extra-axial hemorrhage. BRAIN: Moderate to significant diffuse and confluent chronic white matter ischemic changes seen extending peripherally into the deep and subcortical white matter both cerebral hemispheres. There also appears to be some study. Extension of these changes into the white matter tracts of both basal nuclei. Note that possibility of a small hyperacute infarct cannot be excluded on this study. Moderate central volume loss evidenced by disproportionate enlargement of the ventricles compared sulci. No obvious parenchymal nor extra-axial masses or collections seen on this noncontrast exam. Vascular calcifications carotid and vertebral arteries. VENTRICLES: No obstructive hydrocephalus. CALVARIUM: No acute calvarial fractures. PARANASAL SINUSES: There is mild mucosal thickening both maxillary antra. Mild to moderate mucosal thickening ethmoid air complex. MASTOID AIR CELLS: Unremarkable as visualized. No mastoid effusion. OTHER FINDINGS: Changes of bilateral cataract surgery present. IMPRESSION: No acute intracranial hemorrhage. Moderate to fairly significant chronic white matter ischemic changes. Moderate central volume loss.
[2018-12-11 18:18] LABS: TROPONIN I < 0.01 ng/mL
[2018-12-11] MEDS ORDERED: Magnesium Sulfate 2 gm/50 ml 2 GM/50 ML BAG IVPB ONE (19:13)
[2018-12-11 19:50] LABS: PH,URINE 5.5 (4.7-8.0); URINE BILIRUBIN NEGATIVE (NEGATIVE); URINE BLOOD NEGATIVE (NEGATIVE); URINE GLUCOSE (UA) 250 mg/dL (NEGATIVE); URINE LEUKOCYTE ESTERASE SMALL Leu/uL (NEGATIVE); URINE PROTEIN NEGATIVE mg/dL (<30 mg/dL); URINE UROBILINOGEN 0.2 E.U./dL (<1 E.U./dL)
[2018-12-11 19:51] LABS: URINE APPEARANCE CLEAR (CLEAR); URINE COLOR YELLOW (YELLOW)
[2018-12-11 20:29] LABS: VENOUS BLOOD GAS BASE EXCESS -2.4 mmol/L (0.0-2.0); VENOUS BLOOD GAS PO2 27 mm/Hg (30-55)
[2018-12-11] MEDS: Insulin Reg-LOW-Coverage SC SCH (21:36)
--- NOTE | 2018-12-11 22:26 | CARD ---
APPROVED REPORT Date of service: 12/11/2018 EKG Measurement Heart [id number] <Conclusion> Normal sinus rhythm Left axis deviation Low voltage QRS Incomplete right bundle branch block Slow R wave progression across the precordial leads NDSTT abnormalities Abnormal ECG
[2018-12-11 23:36] VITALS: BMI 22.2
[2018-12-12 00:08] LABS: HDL CHOLESTEROL 50 mg/dL (29-60)
[2018-12-12] MEDS: guaiFENesin 100 mg/5 ml Syrup UD PO PRN ×3 (00:15→17:33)
[2018-12-12 00:17] LABS: IRON 18 ug/dL (45-180)
[2018-12-12 00:18] LABS: LDL CHOLESTEROL 57 mg/dL (0-129)
[2018-12-12 00:27] LABS: % IRON SATURATION 7 % (20-55); TOTAL IRON BINDING CAPACITY 242 ug/dL (265-497)
[2018-12-12 07:04] LABS: MEAN CELL VOLUME 86.9 fl (80.0-105.0); MEAN CORPUSCULAR HEMOGLOBIN 27.8 pg (25.0-35.0); MEAN CORPUSCULAR HGB CONC 31.9 g/dl (31.0-37.0); MEAN PLATELET VOLUME 9.4 fl (7.0-11.0); RBC 3.6 10^6/uL (3.5-6.1); RED CELL DISTRIBUTION WIDTH 14.6 % (11.5-14.5); WHITE BLOOD COUNT 9.2 10^3/uL (4.5-11.0)
[2018-12-12 07:07] LABS: BLOOD UREA NITROGEN 9 mg/dL (7-21); CALCIUM 9.3 mg/dL (8.4-10.5); GFR NON-AFRICAN AMERICAN > 60
[2018-12-12] MEDS: Insulin Reg-LOW-Coverage SC SCH ×4 (08:23→23:02)
[2018-12-12] MEDS: Multivitamin Therapeutic Tab PO SCH (09:46)
[2018-12-12] MEDS: GlipiZIDE 10 mg SR Tab PO SCH (09:46)
[2018-12-12] MEDS ORDERED: [UNRECOGNIZED DRUG - REMARK] PO SCH (10:00)
[2018-12-12 13:19] LABS: FOLATE > 20.0 ng/mL
--- NOTE | 2018-12-12 15:33 | CON ---
DATE: 12/12/2018 NEUROLOGY CONSULTATION CHIEF COMPLAINT: Syncope and dizziness. HISTORY OF PRESENT ILLNESS: A 73-year-old woman with history of type 2 diabetes mellitus, paranoia, coronary artery disease status post stent hypertension, hyperlipidemia, who has nausea, vomiting, diarrhea for the past few days, she was found to be dehydrated, was found on the floor, does not recall what happened. She has some mild generalized weakness, otherwise no focal weakness. She has iron deficiency anemia in the labs and also she is mildly dehydrated. Currently she is moving all extremities without any difficulty. No focal deficits are seen in examination. She has a mild evidence of diabetic peripheral neuropathy seen on examination. CAT scan of the head showed no acute intracranial abnormalities, mild generalized volume loss. MEDICATIONS: Reviewed by nurse's reconciliation sheet. ALLERGIES: NO KNOWN DRUG ALLERGIES. SOCIAL HISTORY: No illicit drug use, smoking, or EtOH abuse. REVIEW OF SYSTEMS: A 14-point review of systems is negative except as per the HPI. FAMILY HISTORY: Noncontributory LABORATORY DATA: No new labs done today. Iron deficiency anemia. PHYSICAL EXAMINATION GENERAL: The patient seen up in bed and in no acute distress. VITAL SIGNS: Temperature of 98, pulse rate of 73, blood pressure of 133/66 and respiratory rate of 16. HEENT: Atraumatic and normocephalic. PERRLA. Extraocular muscles intact. NECK: Supple. No JVD. No adenopathy noted. LUNGS: Clear to auscultation. No adventitious sounds. HEART: S1 and S2. Normal rate and rhythm. No murmurs, rubs, or gallops. ABDOMEN: Soft, nontender, and nondistended. Bowel sounds present. EXTREMITIES: No clubbing. No cyanosis. Peripheral pulses are 2+ felt bilaterally. NEUROLOGIC: The patient is alert and oriented to person, place, month, and year. Speech is without any errors. Cranial nerves II through XII are intact. Motor exam; moves all extremities equally. Toes are downgoing bilaterally. Sensory exam; decreased light touch to pinprick up to the calves bilaterally. Decreased vibrations of the toes. DTRs are 2+ and 1 at both knees and ankles. Coordination; [id number] intact. No dysmetria noted. Gait is deferred for now. Toes are downgoing bilaterally. IMPRESSION: Syncope could be secondary to vasovagal type of affect from underlying diarrhea and vomiting and nausea leading to dehydration. She also has iron deficiency anemia as well in her labs. RECOMMENDATIONS: At this time; 1. Fluid hydration. 2. Orthostatic vital signs. 3. PT/OT evaluation. 4. Keep her blood sugars between 140 and 180 and continue current and present medical management. Thank you for this consult. Santiago Ojeda MD
--- NOTE | 2018-12-12 17:02 | CP.PCM.CON ---
History of Present Illness - History of Present Illness History of Present Illness: Infectious Disease Consultation: December 12, 2018 73 yo female with a PMHx that includes paranoia, heart stents (10+ years), diabetes, hypertension, hyperlipidemia presented to [facility] with 5 day history of nausea, vomiting, and diarrhea. She was found on the floor with no recollection of how she got there. She recently saw her PMD Dr. Guido 4 days ago and was given antibiotics. The patient may have been dehydrated. Possible iron anemia. There is no current leukocytosis. Fever did reach up to 100.8 F. Chest X-ray showing no focal consolidation. Unremarkable CT head. PMHx: paranoia, heart stents (10+ years), diabetes, hypertension, hyperlipidemia PSHx: heart stents, hysterectomy Allergies: NKDA Social Hx: No tobacco, EtOH, or illicit drug use Active Medications Acetaminophen (Tylenol 325mg Tab) 650 mg PO Q6H PRN PRN Reason: Fever >100.4 F Last Admin: 12/12/18 09:52 Dose: 650 mg Albuterol/Ipratropium (Duoneb 3 Mg/0.5 Mg (3 Ml) Ud) 3 ml IH [id number] REPLACED BY [facility] Famotidine (Pepcid) 20 mg PO Q12 REPLACED BY [facility] Last Admin: 12/12/18 09:45 Dose: 20 mg Folic Acid (Folic Acid) 1 mg PO DAILY REPLACED BY [facility] Last Admin: 12/12/18 09:46 Dose: 1 mg Glipizide (Glucotrol Xl) 10 mg PO DAILY REPLACED BY [facility] Last Admin: 12/12/18 09:46 Dose: 10 mg Guaifenesin (Robitussin) 100 mg PO Q4H PRN PRN Reason: Cough Last Admin: 12/12/18 09:52 Dose: 100 mg Ceftriaxone Sodium (Rocephin 1 Gram Ivpb) 1 gm in 100 mls @ 100 mls/hr IVPB DAILY REPLACED BY [facility]; Protocol Insulin Human Regular (Humulin R Low) 0 units SC ACHS REPLACED BY [facility]; Protocol Last Admin: 12/12/18 12:05 Dose: 2 unit Loratadine (Claritin) 10 mg PO DAILY REPLACED BY [facility] Last Admin: 12/12/18 09:46 Dose: 10 mg Metformin HCl (Glucophage) 1,000 mg PO BID REPLACED BY [facility] Last Admin: 12/12/18 09:45 Dose: 1,000 mg Metoprolol Tartrate (Lopressor) 25 mg PO DAILY REPLACED BY [facility] Last Admin: 12/12/18 09:49 Dose: 25 mg Montelukast Sodium (Singulair) 10 mg PO [facility] Multivitamins (Thera Tab) 1 tab PO DAILY REPLACED BY [facility] Last Admin: 12/12/18 09:46 Dose: 1 tab Family Hx: None given ROS: positive nausea, vomiting, diarrhea, loss of consciousness, history of paranoia. No chest pain, abdominal pain, melena, hematuria, hematemesis, hematochezia Past Patient History - Infectious Disease Hx of Infectious Diseases: None - Tetanus Immunizations Tetanus Immunization: Up to Date - Past Social History Smoking Status: Never Smoked - CARDIAC Hx Hypercholesterolemia: Yes Hx Hypertension: Yes - ENDOCRINE/METABOLIC Hx Diabetes Mellitus Type 2: Yes - MUSCULOSKELETAL/RHEUMATOLOGICAL Hx Falls: Yes - PSYCHIATRIC Hx Depression: No Hx Emotional Abuse: No Hx Physical Abuse: No Hx Substance Use: No - SURGICAL HISTORY Hx Coronary Stent: Yes Meds Allergies/Adverse Reactions: Allergies Allergy/AdvReac Type Severity Reaction Status Date / Time No Known Allergies Allergy Verified 12/11/18 15:54 - Medications Medications: Current Medications Acetaminophen (Tylenol 325mg Tab) 650 mg PO Q6H PRN PRN Reason: Fever >100.4 F Last Admin: 12/12/18 09:52 Dose: 650 mg Albuterol/Ipratropium (Duoneb 3 Mg/0.5 Mg (3 Ml) Ud) 3 ml IH [id number] Famotidine (Pepcid) 20 mg PO Q12 REPLACED BY [facility] Last Admin: 12/12/18 09:45 Dose: 20 mg Folic Acid (Folic Acid) 1 mg PO DAILY REPLACED BY [facility] Last Admin: 12/12/18 09:46 Dose: 1 mg Glipizide (Glucotrol Xl) 10 mg PO DAILY REPLACED BY [facility] Last Admin: 12/12/18 09:46 Dose: 10 mg Guaifenesin (Robitussin) 100 mg PO Q4H PRN PRN Reason: Cough Last Admin: 12/12/18 09:52 Dose: 100 mg Insulin Human Regular (Humulin R Low) 0 units SC [facility]; Protocol Last Admin: 12/12/18 12:05 Dose: 2 unit Loratadine (Claritin) 10 mg PO DAILY REPLACED BY [facility] Last Admin: 12/12/18 09:46 Dose: 10 mg Metformin HCl (Glucophage) 1,000 mg PO BID REPLACED BY [facility] Last Admin: 12/12/18 09:45 Dose: 1,000 mg Metoprolol Tartrate (Lopressor) 25 mg PO DAILY REPLACED BY [facility] Last Admin: 12/12/18 09:49 Dose: 25 mg Montelukast Sodium (Singulair) 10 mg PO [facility] Multivitamins (Thera Tab) 1 tab PO DAILY REPLACED BY [facility] Last Admin: 12/12/18 09:46 Dose: 1 tab Physical Exam - Constitutional Appears: Non-toxic, No Acute Distress, Chronically Ill - Head Exam Head Exam: ATRAUMATIC, NORMOCEPHALIC - Eye Exam Eye Exam: EOMI, PERRL Pupil Exam: NORMAL ACCOMODATION, PERRL - ENT Exam ENT Exam: Mucous Membranes Moist, Normal External Ear Exam, TM's Normal Bilat erally - Neck Exam Neck exam: Positive for: Full Rom, Normal Inspection - Respiratory Exam Respiratory Exam: Clear to Auscultation Bilateral, NORMAL BREATHING PATTERN. absent: Rales, Rhonchi, Wheezes - Cardiovascular Exam Cardiovascular Exam: REGULAR RHYTHM, RRR, +S1, +S2 - GI/Abdominal Exam GI & Abdominal Exam: Normal Bowel Sounds, Soft. absent: Distended, Tenderness - Extremities Exam Extremities exam: Positive for: full ROM, normal inspection - Neurological Exam Neurological exam: Alert, CN II-XII Intact, Oriented x3 - Psychiatric Exam Psychiatric exam: Normal Affect, Normal Mood - Skin Skin Exam: Intact, Normal Color Results - Vital Signs Recent Vital Signs: Last Vital Signs Temp 98.1 F 12/12/18 10:52 Pulse 73 12/12/18 10:00 Resp 18 12/12/18 06:00 BP 113/66 12/12/18 09:49 Pulse Ox 99 12/12/18 06:00 - Labs Result Diagrams: 12/12/18 06:00 12/12/18 06:00 Labs: Laboratory Results - last 24 hr 12/11/18 12/11/18 12/11/18 16:17 16:25 17:47 WBC 10.0 RBC 3.88 Hgb 10.9 L Hct 33.8 L MCV 87.1 D MCH 28.1 MCHC 32.2 RDW 14.6 H Plt Count 318 MPV 9.8 Neut % (Auto) 84.1 H Lymph % (Auto) 9.8 L [place] % (Auto) 5.0 Eos % (Auto) 0.9 L Baso % (Auto) 0.2 Lymph # (Auto) 1.0 L [place] # (Auto) 0.5 Eos # (Auto) 0.1 Baso # (Auto) 0.02 Absolute Neuts (auto) 8.38 H pO2 29 L VBG pH 7.37 VBG pCO2 50.0 VBG HCO3 28.9 H VBG Total CO2 30.4 H VBG O2 Sat (Calc) 59.1 VBG Base Excess 2.7 H VBG Potassium 6.8 H* Sodium 133.0 140 Chloride 100.0 102 Glucose 196 H Lactate 2.0 FiO2 21.0 Crit Value Called To lily Silverman Crit Value Called By [facility] Blood Gas Notified Time 1636 Potassium 3.8 Carbon Dioxide 25 Anion Gap 17 BUN 17 Creatinine 0.6 L Est GFR ( Amer) > 60 Est GFR (Non-Af Amer) > 60 POC Glucose (mg/dL) Random Glucose 163 H Calcium 9.6 Magnesium 1.2 L Iron TIBC % Saturation Total Bilirubin 0.3 AST 21 ALT 18 Alkaline Phosphatase 55 Lactate Dehydrogenase 516 Total Creatine Kinase 52 Troponin I < 0.01 Total Protein 7.2 Albumin 3.8 Globulin 3.4 Albumin/Globulin Ratio 1.1 Triglycerides Cholesterol LDL Cholesterol Direct HDL Cholesterol Vitamin B12 Folate TSH 3rd Generation Venous Blood Potassium 6.8 H* Urine Color Urine Appearance Urine pH Ur Specific [place] Urine Protein Urine Glucose (UA) Urine Ketones Urine Blood Urine Nitrate Urine Bilirubin Urine Urobilinogen Ur Leukocyte Esterase Urine RBC Urine WBC Ur Epithelial Cells 12/11/18 12/11/18 12/11/18 19:46 20:10 21:21 WBC RBC Hgb Hct MCV MCH MCHC RDW Plt Count MPV Neut % (Auto) Lymph % (Auto) [place] % (Auto) Eos % (Auto) Baso % (Auto) Lymph # (Auto) [place] # (Auto) Eos # (Auto) Baso # (Auto) Absolute Neuts (auto) pO2 27 L VBG pH 7.30 L VBG pCO2 50.0 VBG HCO3 24.6 VBG Total CO2 26.1 VBG O2 Sat (Calc) 49.9 VBG Base Excess -2.4 L VBG Potassium 4.0 Sodium 137.0 Chloride 104.0 Glucose 257 H Lactate 3.7 H FiO2 21.0 Crit Value Called To Noemi bennett rn Crit Value Called By Lisbeth Blood Gas Notified Time 2024 Potassium Carbon Dioxide Anion Gap BUN Creatinine Est GFR ( Amer) Est GFR (Non-Af Amer) POC Glucose (mg/dL) 229 H Random Glucose Calcium Magnesium Iron TIBC % Saturation Total Bilirubin AST ALT Alkaline Phosphatase Lactate Dehydrogenase Total Creatine Kinase Troponin I Total Protein Albumin Globulin Albumin/Globulin Ratio Triglycerides Cholesterol LDL Cholesterol Direct HDL Cholesterol Vitamin B12 Folate TSH 3rd Generation Venous Blood Potassium 4.0 Urine Color Yellow Urine Appearance Clear Urine pH 5.5 Ur Specific [place] 1.020 Urine Protein Negative Urine Glucose (UA) 250 H Urine Ketones 15 H Urine Blood Negative Urine Nitrate Negative Urine Bilirubin Negative Urine Urobilinogen 0.2 Ur Leukocyte Esterase Small H Urine RBC TEST NOT PERFORMED Urine WBC 5 - 10 H Ur Epithelial Cells 10 - 12 H 12/11/18 12/11/18 12/12/18 23:50 23:50 06:00 WBC 9.2 RBC 3.60 Hgb 10.0 L Hct 31.3 L MCV 86.9 MCH 27.8 MCHC 31.9 RDW 14.6 H Plt Count 286 MPV 9.4 Neut % (Auto) Lymph % (Auto) [place] % (Auto) Eos % (Auto) Baso % (Auto) Lymph # (Auto) [place] # (Auto) Eos # (Auto) Baso # (Auto) Absolute Neuts (auto) pO2 VBG pH VBG pCO2 VBG HCO3 VBG Total CO2 VBG O2 Sat (Calc) VBG Base Excess VBG Potassium Sodium Chloride Glucose Lactate FiO2 Crit Value Called To Crit Value Called By Blood Gas Notified Time Potassium Carbon Dioxide Anion Gap BUN Creatinine Est GFR ( Amer) Est GFR (Non-Af Amer) POC Glucose (mg/dL) Random Glucose Calcium Magnesium Iron 18 L TIBC 242 L % Saturation 7 L Total Bilirubin AST ALT Alkaline Phosphatase Lactate Dehydrogenase Total Creatine Kinase Troponin I Total Protein Albumin Globulin Albumin/Globulin Ratio Triglycerides 110 Cholesterol 128 L LDL Cholesterol Direct 57 HDL Cholesterol 50 Vitamin B12 907 Folate > 20.0 TSH 3rd Generation Venous Blood Potassium Urine Color Urine Appearance Urine pH Ur Specific [place] Urine Protein Urine Glucose (UA) Urine Ketones Urine Blood Urine Nitrate Urine Bilirubin Urine Urobilinogen Ur Leukocyte Esterase Urine RBC Urine WBC Ur Epithelial Cells 12/12/18 12/12/18 12/12/18 06:00 06:00 07:29 WBC RBC Hgb Hct MCV MCH MCHC RDW Plt Count MPV Neut % (Auto) Lymph % (Auto) [place] % (Auto) Eos % (Auto) Baso % (Auto) Lymph # (Auto) [place] # (Auto) Eos # (Auto) Baso # (Auto) Absolute Neuts (auto) pO2 VBG pH VBG pCO2 VBG HCO3 VBG Total CO2 VBG O2 Sat (Calc) VBG Base Excess VBG Potassium Sodium 138 Chloride 103 Glucose Lactate FiO2 Crit Value Called To Crit Value Called By Blood Gas Notified Time Potassium 3.4 L Carbon Dioxide 30 Anion Gap 9 L BUN 9 Creatinine 0.6 L Est GFR ( Amer) > 60 Est GFR (Non-Af Amer) > 60 POC Glucose (mg/dL) 151 H Random Glucose 130 H Calcium 9.3 Magnesium Iron TIBC % Saturation Total Bilirubin AST ALT Alkaline Phosphatase Lactate Dehydrogenase Total Creatine Kinase Troponin I Total Protein Albumin Globulin Albumin/Globulin Ratio Triglycerides Cholesterol LDL Cholesterol Direct HDL Cholesterol Vitamin B12 Folate TSH 3rd Generation 0.55 Venous Blood Potassium Urine Color Urine Appearance Urine pH Ur Specific [place] Urine Protein Urine Glucose (UA) Urine Ketones Urine Blood Urine Nitrate Urine Bilirubin Urine Urobilinogen Ur Leukocyte Esterase Urine RBC Urine WBC Ur Epithelial Cells 12/12/18 12/12/18 11:10 15:59 WBC RBC Hgb Hct MCV MCH MCHC RDW Plt Count MPV Neut % (Auto) Lymph % (Auto) [place] % (Auto) Eos % (Auto) Baso % (Auto) Lymph # (Auto) [place] # (Auto) Eos # (Auto) Baso # (Auto) Absolute Neuts (auto) pO2 VBG pH VBG pCO2 VBG HCO3 VBG Total CO2 VBG O2 Sat (Calc) VBG Base Excess VBG Potassium Sodium Chloride Glucose Lactate FiO2 Crit Value Called To Crit Value Called By Blood Gas Notified Time Potassium Carbon Dioxide Anion Gap BUN Creatinine Est GFR ( Amer) Est GFR (Non-Af Amer) POC Glucose (mg/dL) 229 H 157 H Random Glucose Calcium Magnesium Iron TIBC % Saturation Total Bilirubin AST ALT Alkaline Phosphatase Lactate Dehydrogenase Total Creatine Kinase Troponin I Total Protein Albumin Globulin Albumin/Globulin Ratio Triglycerides Cholesterol LDL Cholesterol Direct HDL Cholesterol Vitamin B12 Folate TSH 3rd Generation Venous Blood Potassium Urine Color Urine Appearance Urine pH Ur Specific [place] Urine Protein Urine Glucose (UA) Urine Ketones Urine Blood Urine Nitrate Urine Bilirubin Urine Urobilinogen Ur Leukocyte Esterase Urine RBC Urine WBC Ur Epithelial Cells Assessment & Plan - Assessment and Plan (Free Text) Assessment: 73 yo female with loss of consciousness with PMHx of paranoia, heart stents (10+ years), diabetes, hypertension, and hyperlipidemia. 5 day history of nausea, vomiting, and diarrhea. The patient with episode of fever up to 100.8 F in hospital. Rule out sepsis. UTI, and URI. Start Rocephin 1gm IV daily for now. Elizalde cultures. No leukocytosis currently. Fever possibly secondary to dehydration? Reculture if fever reappears. Supportive care. Thank you for allowing me to participate in the care of the patient, we will follow with you.
[2018-12-12] MEDS: cefTRIAXone 1 gm 1 GM/100 ML BAG IVPB SCH (17:33)
--- NOTE | 2018-12-12 20:31 | HP ---
DATE OF EXAM: 12/12/2018 The patient is seen and examined at the bedside on 12/12/2018. CHIEF COMPLAINT: Coughing, shortness of breath, and passing out. HISTORY OF PRESENT ILLNESS: Ms. Joann Coronado is a 73-year-old female with past medical history of coronary artery disease with cardiac stenting 10 years ago, diabetes mellitus, hypertension, hypercholesterolemia, came to emergency department accompanied with the family and was complaining of nausea, vomiting, diarrhea, history of passing out, coughing, and shortness of breath. The patient was found on the floor yesterday and does not recall what happened. The patient was seen and evaluated by me in my office. Antibiotics were given for upper respiratory tract infection, she came in to my office at that time she has upper respiratory tract infection. Antibiotics were given, but later on at home, he has a history of passing out and started nausea, vomiting, and diarrhea and the patient is coughing, but no hematuria and no hematochezia. PAST MEDICAL HISTORY: Diabetes mellitus type 2, history of fall, hypertension, hypercholesterolemia, coronary artery disease, and status post cardiac stents. FAMILY HISTORY: Father and mother noncontributory. HABITS: Never smoked. No drugs. No ethanol. ALLERGIES: THE PATIENT IS NOT ALLERGIC WITH ANY MEDICATION. HOME MEDICATIONS: Augmentin, folic acid, glipizide, metformin, metoprolol, Singulair, potassium, ranitidine, and Lasix. REVIEW OF SYSTEMS: The patient was seen and examined at the bedside in the room and looking comfortable, but still coughing with shortness of breath. Nausea, vomiting, and diarrhea is better. No headache. No dizziness. No chest pain. No palpitation this moment. PHYSICAL EXAMINATION: VITAL SIGNS: Temperature 98.1, T-max 100.8, blood pressure 113/66, and pulse oximetry 73. HEENT: Head; normocephalic and atraumatic. Eyes; PERRLA. Extraocular muscles are intact. Conjunctivae clear. Nose patent. Mucous membranes moist. NECK: Supple. No carotid bruit, JVD, or thyromegaly. CHEST: Bilaterally symmetrical. HEART: S1 and S2 positive. LUNGS: Clear to auscultation. ABDOMEN: Soft. Bowel sounds present. No organomegaly. EXTREMITIES: No edema, No cyanosis. NEUROLOGIC: The patient is awake and alert. Moving all 4 extremities. No focal deficits. LABORATORY DATA: White blood cell 9.2, hemoglobin 10, hematocrit 31.3, and platelets 286. Sodium 138, potassium 3.4, BUN 9, creatinine 0.6, and glucose 157. ASSESSMENT AND PLAN: Ms. Joann Coronado is a 73-year-old lady with anemia, hypokalemia replaced, uncontrolled diabetes mellitus, iron deficiency, history of hypercholesterolemia, but now cholesterol is stable, glucosuria, ketonuria, and urinary tract infection. CAT scan of the head is done, seen by Dr. Santiaog Ojeda, neurologist. History of type 2 diabetes mellitus, paranoia, coronary artery disease, status post cardiac stent, hypertension, and came with like syncopal attack. According to neurologist, syncope could be secondary to vasovagal type of effect from underlying diarrhea and vomiting and nausea leading to dehydration, may be hypotension. Continue IV fluid, orthostatic vital signs, out of bed, and physical therapy. Now, the patient is coughing and started Duoneb. Discussion done with the patient's and grandson and the patient's nurse. Gastrointestinal and deep vein thrombosis prophylaxes. Repeat labs. We will follow up. Candie Guido MD [facility]
[2018-12-12] MEDS: Albuterol-Ipratrop 3 mg / 0.5 (3 ml) UD IH SCH (20:46)
[2018-12-13] MEDS: Albuterol-Ipratrop 3 mg / 0.5 (3 ml) UD IH SCH ×4 (01:22→19:50)
[2018-12-13 07:46] LABS: HEMOGLOBIN 9.6 g/dL (12.0-16.0); MEAN CELL VOLUME 86.5 fl (80.0-105.0); MEAN CORPUSCULAR HEMOGLOBIN 27.6 pg (25.0-35.0); MEAN CORPUSCULAR HGB CONC 31.9 g/dl (31.0-37.0); MEAN PLATELET VOLUME 9.3 fl (7.0-11.0); RBC 3.48 10^6/uL (3.5-6.1); RED CELL DISTRIBUTION WIDTH 14.8 % (11.5-14.5); WHITE BLOOD COUNT 8.4 10^3/uL (4.5-11.0)
[2018-12-13 08:09] LABS: BLOOD UREA NITROGEN 10 mg/dL (7-21); CALCIUM 8.7 mg/dL (8.4-10.5); GFR NON-AFRICAN AMERICAN > 60
[2018-12-13] MEDS: Insulin Reg-LOW-Coverage SC SCH ×4 (08:11→22:30)
[2018-12-13] MEDS ORDERED: Potassium Chloride 20 mEq ER Tab PO ONE (10:16)
[2018-12-13] MEDS: GlipiZIDE 10 mg SR Tab PO SCH (10:25)
[2018-12-13] MEDS: Multivitamin Therapeutic Tab PO SCH (10:26)
[2018-12-13] MEDS: cefTRIAXone 1 gm 1 GM/100 ML BAG IVPB SCH (10:27)
[2018-12-13] MEDS ORDERED: Iron Sucrose 100 mg/5 ml Inj IVP SCH (16:00)
--- NOTE | 2018-12-13 16:12 | CP.PCM.PN ---
Subjective - Date & Time of Evaluation Date of Evaluation: 12/13/18 Time of Evaluation: 15:00 - Subjective Subjective: Infectious Disease Follow Up: December 13, 2018 73 yo female with a PMHx that includes paranoia, heart stents (10+ years), diabetes, hypertension, hyperlipidemia [place] [facility] [place] 5 day history of nausea, vomiting, and diarrhea. She was found on the floor with no recollection of how she got there. She recently saw her PMD Dr. Guido 4 days ago and was given antibiotics. The patient may have been dehydrated. Possible iron anemia. There is no current leukocytosis. Fever did reach up to 100.8 F one time yesterday. Chest X-ray showing no focal consolidation. Unremarkable CT head. Awaiting Urine cultures. On Rocephin for now. Patient appears to be at her baseline level. Objective - Vital Signs/Intake and Output Vital Signs (last 24 hours): Temp Pulse Resp BP Pulse Ox 98 F 76 20 126/87 97 12/13/18 12:00 12/13/18 12:00 12/13/18 12:00 12/13/18 12:00 12/13/18 05:18 Intake and Output: 12/13/18 12/13/18 06:59 18:59 Intake Total 180 Output Total 1 Balance 179 - Medications Medications: Current Medications Acetaminophen (Tylenol 325mg Tab) 650 mg PO Q6H PRN PRN Reason: Fever >100.4 F Last Admin: 12/12/18 09:52 Dose: 650 mg Albuterol/Ipratropium (Duoneb 3 Mg/0.5 Mg (3 Ml) Ud) 3 ml IH [id number] [facility] Last Admin: 12/13/18 13:20 Dose: 3 ml Famotidine (Pepcid) 20 mg PO Q12 [facility] Last Admin: 12/13/18 10:26 Dose: 20 mg Folic Acid (Folic Acid) 1 mg PO DAILY [facility] Last Admin: 12/13/18 10:26 Dose: 1 mg Glipizide (Glucotrol Xl) 10 mg PO DAILY [facility] Last Admin: 12/13/18 10:25 Dose: 10 mg Guaifenesin (Robitussin) 100 mg PO Q4H PRN PRN Reason: Cough Last Admin: 12/12/18 17:33 Dose: 100 mg Ceftriaxone Sodium (Rocephin 1 Gram Ivpb) 1 gm in 100 mls @ 100 mls/hr IVPB DAILY [facility]; Protocol Last Admin: 12/13/18 10:27 Dose: 100 mls/hr Insulin Human Regular (Humulin R Low) 0 units SC ACHS [facility]; Protocol Last Admin: 12/13/18 12:17 Dose: 1 unit Iron Sucrose (Venofer) 100 mg IVP DAILY [facility] Loratadine (Claritin) 10 mg PO DAILY [facility] Last Admin: 12/13/18 10:26 Dose: 10 mg Metformin HCl (Glucophage) 1,000 mg PO BID [facility] Last Admin: 12/13/18 10:25 Dose: 1,000 mg Metoprolol Tartrate (Lopressor) 25 mg PO DAILY [facility] Last Admin: 12/13/18 10:26 Dose: 25 mg Montelukast Sodium (Singulair) 10 mg PO HS [facility] Last Admin: 12/12/18 21:11 Dose: 10 mg Multivitamins (Thera Tab) 1 tab PO DAILY [facility] Last Admin: 12/13/18 10:26 Dose: 1 tab - Labs Labs: 12/13/18 07:00 12/13/18 07:00 - Constitutional Appears: Non-toxic, No Acute Distress, Chronically Ill - Head Exam Head Exam: ATRAUMATIC, NORMOCEPHALIC - Eye Exam Eye Exam: EOMI, PERRL Pupil Exam: NORMAL ACCOMODATION, PERRL - ENT Exam ENT Exam: Mucous Membranes Moist, Normal External Ear Exam, TM's Normal Bilaterally - Neck Exam Neck Exam: Full ROM, Normal Inspection - Respiratory Exam Respiratory Exam: Clear to Ausculation Bilateral, NORMAL BREATHING PATTERN. absent: Rales, Rhonchi, Wheezes - Cardiovascular Exam Cardiovascular Exam: REGULAR RHYTHM, RRR, +S1, +S2 - GI/Abdominal Exam GI & Abdominal Exam: Soft, Normal Bowel Sounds. absent: Distended, Tenderness - Extremities Exam Extremities Exam: Full ROM, Normal Inspection - Neurological Exam Neurological Exam: Alert, Awake, CN II-XII Intact, Oriented x3 - Psychiatric Exam Psychiatric exam: Normal Affect, Normal Mood - Skin Skin Exam: Intact, Normal Color Assessment and Plan - Assessment and Plan (Free Text) Assessment: 73 yo female with loss of consciousness with PMHx of paranoia, heart stents (10+ years), diabetes, hypertension, and hyperlipidemia. 5 day history of nausea, vomiting, and diarrhea. The patient with episode of fever up to 100.8 F in hospital. Rule out sepsis. UTI, and URI. Continue Rocephin 1gm IV daily for now. Elizalde cultures. No leukocytosis currently. Fever possibly secondary to dehydration? Reculture if fever reappears. Awaiting urine cultures. If negative, will stop Rocephin at 3 days of dosing. No further episodes of fever in the past 24 hours. Supportive care. Thank you for allowing me to participate in the care of the patient, we will follow with you.
--- NOTE | 2018-12-14 00:31 | CON ---
DATE: 12/13/2018 PULMONARY CONSULT REFERRING PHYSICIAN: Dr. Guido REASON FOR CONSULT: Status post syncopal episode, had some cough. HISTORY OF PRESENT ILLNESS: This is a 73-year-old female with past medical history significant for diabetes, coronary artery disease, history of coronary stent, hypertension, hyperlipidemia, has been having some nausea, vomiting, and diarrhea for a few days. Apparently found on the floor at home, does not know how she got there. Presently admitted in the hospital, seen by Neurology, Infectious Diseases, and Dr. Guido. Has mild cough. No nausea, no vomiting, no diarrhea at present. No leg pain or leg swelling. PAST MEDICAL HISTORY: As per history of present illness. ALLERGIES: NONE KNOWN. SOCIAL HISTORY: Denied any smoking or alcohol use. FAMILY HISTORY: No significant cardiopulmonary disease reported. MEDICATIONS: She is on Claritin 10 mg daily, DuoNeb every 6 hours [id number], folic acid 1 mg daily, metformin 1000 mg twice a day, glipizide 10 mg daily, Pepcid is 20 mg twice a day, metoprolol tartrate 25 mg daily, insulin coverage, also on Robitussin p.r.n. basis, Rocephin 1 g IV daily, Singulair 10 mg daily, multivitamins daily, Tylenol p.r.n. basis. REVIEW OF SYSTEMS: No headache, not much rhinitis, mild cough and shortness of breath. No chest pain. No nausea at present time. No abdominal pain. No leg pain or leg swelling. Denied any melena. PHYSICAL EXAMINATION: GENERAL: In no acute distress. VITAL SIGNS: Temperature is 98, heart rate 76, respiratory rate is 20, blood pressure 126/87, pulse of 97% on room air. HEENT: Small oral cavity, crowded airway. NECK: Supple. No JVD. LUNGS: Have fair air flow with rhonchi. HEART: S1, S2. ABDOMEN: Soft, nontender. No organomegaly. EXTREMITIES: No edema. NEUROLOGIC: Awake, alert, follows simple commands. LABORATORY DATA: Shows hemoglobin 9.6, hematocrit 30.1, WBC 8.4, platelet is 269. Her VBG done on admission showed pH 7.30, pCO2 of 50, O2 was 27. Sodium 141, potassium 3.4, chloride 103, bicarbonate is 30, BUN 10, creatinine 0.6, glucose 199, calcium is 8.7. CAT scan of the head was done which is unremarkable. Also had a chest x-ray done on admission, shows no focal consolidation reported. IMPRESSION AND PLAN: Status post fall with loss of memory of the event, diabetes, coronary artery disease, history of coronary stent, hyperlipidemia. The patient seen by Infectious Diseases and Neurology. I will suggest getting CT of the chest, also will suggest checking orthostatic hypotension. Continue Rocephin for now. Gastric prophylaxis and deep vein thrombosis prophylaxis. Will also get echocardiogram to assess and rule out cardiac causes of syncopal episode. Thank you and we will follow with you. Zacarias Valdes MD
[2018-12-14] MEDS: Albuterol-Ipratrop 3 mg / 0.5 (3 ml) UD IH SCH ×4 (00:59→20:16)
--- NOTE | 2018-12-14 03:36 | PN ---
DATE: 12/13/2018 SUBJECTIVE: The patient is a 73-year-old female. The patient was seen and examined at the bedside on 12/13/2018, looking comfortable. No fever. No chills. No hematuria. No hematochezia. Cough is still there. No headache. No dizziness. No chest pain. No palpitation. PHYSICAL EXAMINATION: VITAL SIGNS: Temperature 97.8, pulse 88, blood pressure 128/67, rr 18. HEENT: Head; normocephalic and atraumatic. Eyes; PERRLA. Extraocular muscles are intact. Conjunctivae clear. Nose patent. Mucous membranes moist. NECK: Supple. No carotid bruit, JVD, or thyromegaly. CHEST: Bilaterally symmetrical. HEART: S1 and S2 positive. LUNGS: Clear to auscultation. ABDOMEN: Soft. Bowel sounds present. No organomegaly. EXTREMITIES: No edema. No cyanosis. NEUROLOGIC: The patient is awake and alert. Moving all four extremities. No focal deficits. MEDICATIONS: Ferritin, DuoNeb, folic acid, Glucophage, Lipitor, insulin, Pepcid, Robitussin, Rocephin, Singulair, Tylenol, Venofer. LABORATORY DATA: White blood cell is 8.4, hemoglobin 9.6, hematocrit 30.1, and platelets 269. Sodium 141, potassium 3.4, BUN 10, creatinine 0.6, and glucose 314. ASSESSMENT AND PLAN: Ms. Joann Coronado is a 73-year-old lady with anemia, hypokalemia, diabetes mellitus, glucosuria, ketonuria, urinary tract infection, noncompliant, history of paranoia, history of cardiac stenting, came in to [facility] with nausea, vomiting, diarrhea, history of fever, urosepsis, urinary tract infection, and upper respiratory tract infection. Continue Rocephin intravenous 1 g daily. Pancultures done, results are pending. History of dehydration. Waiting for urine culture. Gastrointestinal and deep venous thrombosis prophylaxis, repeat labs, out of bed physical therapy. We will follow up. Candie Guido MD MTDJesús
[2018-12-14 07:21] LABS: MEAN CELL VOLUME 85.6 fl (80.0-105.0); MEAN CORPUSCULAR HEMOGLOBIN 27.1 pg (25.0-35.0); MEAN CORPUSCULAR HGB CONC 31.6 g/dl (31.0-37.0); RBC 3.69 10^6/uL (3.5-6.1); RED CELL DISTRIBUTION WIDTH 14.9 % (11.5-14.5); WHITE BLOOD COUNT 10.2 10^3/uL (4.5-11.0)
[2018-12-14 07:32] LABS: BLOOD UREA NITROGEN 10 mg/dL (7-21); CALCIUM 8.9 mg/dL (8.4-10.5); GFR NON-AFRICAN AMERICAN > 60
[2018-12-14] MEDS: Insulin Reg-LOW-Coverage SC SCH ×4 (08:20→22:10)
[2018-12-14] MEDS: Multivitamin Therapeutic Tab PO SCH (09:24)
[2018-12-14] MEDS: GlipiZIDE 10 mg SR Tab PO SCH (09:25)
[2018-12-14] MEDS: cefTRIAXone 1 gm 1 GM/100 ML BAG IVPB SCH (09:25)
--- NOTE | 2018-12-14 12:49 | CT ---
Date of service: 12/14/2018 PROCEDURE: CT Chest without contrast HISTORY: infiltrate COMPARISON: None available. TECHNIQUE: Contiguous axial images were obtained through the chest without intravenous contrast enhancement. Sagittal and coronal reconstructions were performed. Radiation dose: Total exam DLP = 111.86 mGy-cm. This CT exam was performed using one or more of the following dose reduction techniques: Automated exposure control, adjustment of the mA and/or kV according to patient size, and/or use of iterative reconstruction technique. FINDINGS: LUNGS: Clear lungs. Visualized airway clear MEDIASTINUM: Unremarkable thoracic aorta. No aneurysm. Normal sized heart. Main pulmonary artery unremarkable. No vascular congestion. No lymphadenopathy. Aortic calcification. Coronary stent PLEURA: No pleural fluid. No pneumothorax. BONES: No fracture. No destructive lesion. UPPER ABDOMEN: Grossly unremarkable. OTHER FINDINGS: None. IMPRESSION: Unremarkable non-contrast enhanced CT of the chest.
--- NOTE | 2018-12-14 12:49 | PN ---
DATE: 12/14/2018 PULMONARY PROGRESS NOTE REFERRING PHYSICIAN: Candie Guido MD SUBJECTIVE: The patient is seen, sitting in armchair in room. No acute distress. No overnight events reported. No headache, rhinitis, cough, shortness of breath, chest pain, abdominal pain, nausea, vomiting, diarrhea, leg pain or leg swelling reported. OBJECTIVE GENERAL: No acute distress. VITAL SIGNS: Blood pressure 111/65, pulse 77, temperature 98 and oxygen saturation 93% on room air. HEENT: Small oral cavity. Crowded airway. NECK: Supple. No JVD. LUNGS: Fair airflow bilaterally. CARDIOVASCULAR: S1 and S2. ABDOMEN: Soft and nontender. No distention. No organomegaly. EXTREMITIES: No bilateral lower extremity edema. NEUROLOGIC: Awake, alert, and verbal. Following commands. MEDICATIONS: Reviewed. Tylenol 650 mg every 6 hours p.r.n., fever greater than 100.4, DuoNeb 3 mL inhalation every 6 hours, Rocephin 1 g daily, Pepcid 20 mg every 12 hours, folic acid 1 mg daily, glipizide 10 mg daily, Robitussin 100 mg every 4 hours p.r.n., Humulin R sliding scale a.c. and at bedtime, iron sucrose 100 mg and sodium chloride 105 mL at 210 mL per hour daily, Claritin 10 mg daily, metformin 1000 mg twice a day, Lopressor 25 mg daily, Singulair 10 mg at bedtime and multivitamin 1 tab daily. LABORATORY DATA: Reviewed. WBC 10.3, RBC 3.69, hemoglobin 10, hematocrit 31.6, and platelets 296. Sodium 141, potassium 3.6, chloride 103, carbon dioxide 28, anion gap 13, BUN 10, creatinine 0.6, GFR greater than 60, POC glucose 235, random glucose 121 and calcium 8.9. Chest CT report pending. IMPRESSION AND PLAN: Status post fall with loss of memory of the event, coronary artery disease, history of coronary stents, hyperlipidemia and diabetes. Continue Infectious Diseases followup and Neurology followup. We will followup with CAT scan of the chest report when available. Gastric prophylaxis. Will place on low dose Lovenox for deep venous thrombosis prophylaxis due to iron deficiency anemia. CBC in morning. Continue antibiotic therapy and fall precautions. This patient was seen with Dr. Valdes. Discussed assessment and plan as described above. This patient was seen and examined with Jaquan Corral, nurse practitioner. Discussed assessment and plan as described above. Thank you for this consult and we will follow with you. Jaquan Corral APN Zacarias Valdes MD TIMBO
--- NOTE | 2018-12-14 16:30 | CP.PCM.PN ---
Subjective - Date & Time of Evaluation Date of Evaluation: 12/14/18 Time of Evaluation: 15:00 - Subjective Subjective: Infectious Disease Follow Up: December 14, 2018 73 yo female with a PMHx that includes paranoia, heart stents (10+ years), diabetes, hypertension, hyperlipidemia presented to [facility] with 5 day history of nausea, vomiting, and diarrhea. She was found on the floor with no recollection of how she got there. She recently saw her PMD Dr. Guido 4 days ago and was given antibiotics. The patient may have been dehydrated. Possible iron anemia. There is no current leukocytosis. Fever did reach up to 100.8 F one time two days ago. Chest X-ray showing no focal consolidation. Unremarkable CT head. Awaiting Urine cultures. On Rocephin for now. Patient appears to be at her baseline level. Urine cultures showing only yeast. Unremarkable CT Chest. Supportive care. Objective - Vital Signs/Intake and Output Vital Signs (last 24 hours): Temp Pulse Resp BP Pulse Ox 98.3 F 90 20 130/79 99 12/14/18 14:00 12/14/18 14:00 12/14/18 14:00 12/14/18 14:00 12/14/18 14:00 Intake and Output: 12/14/18 12/14/18 06:59 18:59 Intake Total 420 480 Balance 420 480 - Medications Medications: Current Medications Acetaminophen (Tylenol 325mg Tab) 650 mg PO Q6H PRN PRN Reason: Fever >100.4 F Last Admin: 12/12/18 09:52 Dose: 650 mg Albuterol/Ipratropium (Duoneb 3 Mg/0.5 Mg (3 Ml) Ud) 3 ml IH [id number] [facility] Last Admin: 12/14/18 14:01 Dose: 3 ml Enoxaparin Sodium (Lovenox) 30 mg SC DAILY [facility]; Protocol Famotidine (Pepcid) 20 mg PO Q12 [facility] Last Admin: 12/14/18 09:25 Dose: 20 mg Folic Acid (Folic Acid) 1 mg PO DAILY [facility] Last Admin: 12/14/18 09:24 Dose: 1 mg Glipizide (Glucotrol Xl) 10 mg PO DAILY [facility] Last Admin: 12/14/18 09:25 Dose: 10 mg Guaifenesin (Robitussin) 100 mg PO Q4H PRN PRN Reason: Cough Last Admin: 12/12/18 17:33 Dose: 100 mg Ceftriaxone Sodium (Rocephin 1 Gram Ivpb) 1 gm in 100 mls @ 100 mls/hr IVPB DAILY [facility]; Protocol Last Admin: 12/14/18 09:25 Dose: 100 mls/hr Iron Sucrose 100 mg/ Sodium (Chloride) 105 mls @ 210 mls/hr IVPB DAILY [facility] Stop: 12/17/18 10:29 Last Admin: 12/14/18 10:37 Dose: 210 mls/hr Insulin Human Regular (Humulin R Low) 0 units SC ACHS [facility]; Protocol Last Admin: 12/14/18 12:40 Dose: 3 unit Loratadine (Claritin) 10 mg PO DAILY [facility] Last Admin: 12/14/18 09:25 Dose: 10 mg Metformin HCl (Glucophage) 1,000 mg PO BID [facility] Last Admin: 12/14/18 09:24 Dose: 1,000 mg Metoprolol Tartrate (Lopressor) 25 mg PO DAILY [facility] Last Admin: 12/14/18 09:24 Dose: 25 mg Montelukast Sodium (Singulair) 10 mg PO HS [facility] Last Admin: 12/13/18 21:35 Dose: 10 mg Multivitamins (Thera Tab) 1 tab PO DAILY [facility] Last Admin: 12/14/18 09:24 Dose: 1 tab - Labs Labs: 12/14/18 07:00 12/14/18 07:00 - Constitutional Appears: Non-toxic, No Acute Distress, Chronically Ill - Head Exam Head Exam: ATRAUMATIC, NORMOCEPHALIC - Eye Exam Eye Exam: EOMI, PERRL Pupil Exam: NORMAL ACCOMODATION, PERRL - ENT Exam ENT Exam: Mucous Membranes Moist, Normal External Ear Exam, TM's Normal Bilaterally - Neck Exam Neck Exam: Full ROM, Normal Inspection - Respiratory Exam Respiratory Exam: Clear to Ausculation Bilateral, NORMAL BREATHING PATTERN. absent: Rales, Rhonchi, Wheezes - Cardiovascular Exam Cardiovascular Exam: REGULAR RHYTHM, RRR, +S1, +S2 - GI/Abdominal Exam GI & Abdominal Exam: Soft, Normal Bowel Sounds. absent: Distended, Tenderness - Extremities Exam Extremities Exam: Full ROM, Normal Inspection - Neurological Exam Neurological Exam: Alert, Awake, CN II-XII Intact, Oriented x3 - Psychiatric Exam Psychiatric exam: Normal Affect, Normal Mood - Skin Skin Exam: Intact, Normal Color Assessment and Plan - Assessment and Plan (Free Text) Assessment: 73 yo female with loss of consciousness with PMHx of paranoia, heart stents (10+ years), diabetes, hypertension, and hyperlipidemia. 5 day history of nausea, vomiting, and diarrhea. The patient with episode of fever up to 100.8 F in hospital. Rule out sepsis. UTI, and URI. Continue Rocephin 1gm IV daily for now. Elizalde cultures. No leukocytosis currently. Fever possibly secondary to dehydration? Reculture if fever reappears. Awaiting urine cultures. If negative, will stop Rocephin at 3 days of dosing. No further episodes of fever in the past [address] and Chest CT. Urine cultures are negative for bacteria... can stop Rocephin today. Start oral Diflucan for the yeast in the urine culture. Diflucan 100mg PO daily for 7 days. Supportive care. Thank you for allowing me to participate in the care of the patient, we will follow with you.
[2018-12-15] MEDS: Albuterol-Ipratrop 3 mg / 0.5 (3 ml) UD IH SCH ×4 (02:56→21:00)
[2018-12-15] MEDS: Insulin Reg-LOW-Coverage SC SCH ×4 (07:30→22:15)
[2018-12-15 07:49] LABS: BASO # 0.02 K/mm3 (0.0-2.0); BASO % 0.3 % (0.0-3.0); EOS # 0.4 (0.0-0.7); EOS % 4.9 % (1.5-5.0); HEMOGLOBIN 9.6 g/dL (12.0-16.0); LYMPH # 2.7 (1.2-3.4); LYMPH % 36.4 % (22.0-35.0); MEAN CELL VOLUME 86.1 fl (80.0-105.0); MEAN CORPUSCULAR HEMOGLOBIN 27.3 pg (25.0-35.0); MEAN CORPUSCULAR HGB CONC 31.7 g/dl (31.0-37.0); MEAN PLATELET VOLUME 9.1 fl (7.0-11.0); MONO # 0.4 (0.1-0.6); MONO % 4.7 % (1.0-6.0); RBC 3.52 10^6/uL (3.5-6.1); RED CELL DISTRIBUTION WIDTH 15.1 % (11.5-14.5); WHITE BLOOD COUNT 7.4 10^3/uL (4.5-11.0)
[2018-12-15] MEDS: cefTRIAXone 1 gm 1 GM/100 ML BAG IVPB SCH (09:15)
[2018-12-15] MEDS: Multivitamin Therapeutic Tab PO SCH (09:16)
[2018-12-15] MEDS: GlipiZIDE 10 mg SR Tab PO SCH (09:17)
[2018-12-15] MEDS ORDERED: Enoxaparin 30 mg Syringe SC SCH (10:00)
--- NOTE | 2018-12-15 12:34 | PN ---
DATE: 12/15/2018 REFERRING PHYSICIAN: Candie Guido MD SUBJECTIVE: The patient seen lying in bed. No acute distress. No overnight events reported. No headache, rhinitis, cough, shortness of breath, chest pain, abdominal pain, nausea, vomiting, diarrhea, leg pain or leg swelling reported. PHYSICAL EXAMINATION GENERAL: No acute distress. VITAL SIGNS: Blood pressure 121/75, pulse 66, temperature 98 and oxygen saturation 97% on room air. HEENT: Moist mucous membranes. Small oral cavity. Crowded airway. NECK: Supple. No JVD. CARDIOPULMONARY: S1 and S2. LUNGS: Fair airflow bilaterally. ABDOMEN: Soft and nontender. No distention. No organomegaly. EXTREMITIES: No bilateral lower extremity edema. NEUROLOGIC: Awake, alert, and verbal. Following commands. MEDICATIONS: Reviewed. Tylenol 650 mg every 6 hours p.r.n. fever greater than 104, DuoNeb 3 mL inhalation every 6 hours, Rocephin 1 g daily, Lovenox 30 mg subcutaneous daily, Pepcid 20 mg every 12 hours, Diflucan 100 mg daily, folic acid 1 mg daily, glipizide 10 mg daily, Robitussin 100 mg every 4 hours p.r.n., Humulin R sliding scale a.c. and at bedtime, iron sucrose 100 mg and sodium chloride 105 mL at 210 mL per hour daily, Claritin 10 mg daily, metformin 1000 mg twice a day, Lopressor 25 mg daily, Singulair 10 mg at bedtime and multivitamin 1 tab daily. LABORATORY DATA: Reviewed. WBC 7.4, RBC 3.52, hemoglobin 9.6, hematocrit 30.3, and platelets 314. POC glucose 69. Urine culture final shows yeast. Chest CT which showed unremarkable noncontrast enhanced CT of the chest. IMPRESSION AND PLAN: Status post fall with loss of memory of the event, coronary artery disease, history of coronary stent, hyperlipidemia, diabetes, urine culture showing yeast. The patient started on Diflucan. Continue infectious disease followup. Antibiotics per Infectious Disease. Continue gastric prophylaxis, deep vein thrombosis prophylaxis. The patient currently on iron due to iron deficiency anemia. We will order GI consult for evaluation of anemia, fall precautions. This patient was seen and examined with Dr. Valdes. Discussed assessment and plan as described above. This patient was seen and examined with Jaquan Corral, nurse practitioner. Discussed assessment and plan as described above. Thank you for this consult. We will follow with you. Jaquan Corral APN Zacarias Valdes MD
--- NOTE | 2018-12-15 13:15 | PN ---
DATE: 12/14/2018 SUBJECTIVE: The patient was seen and examined at the bedside on 12/14/2018, looking comfortable, looks like little bit anxious. No fever. No chills. No hematuria or hematochezia. No headache. No dizziness. No chest pain. No palpitation. No events happened overnight. PHYSICAL EXAMINATION VITAL SIGNS: Blood pressure 110/60, pulse 77, temperature 98.1, oxygen saturation 96% on room air. HEENT: Head normocephalic, atraumatic. Eyes PERRLA. Extraocular muscles intact. Conjunctivae clear. Nose patent. Mucous membranes moist. NECK: Supple. No carotid bruits. No JVD. No thyromegaly. CHEST: Bilaterally symmetrical. HEART: S1 and S2, positive. LUNGS: Clear to auscultation. ABDOMEN: Soft. Bowel sounds positive. No organomegaly. EXTREMITIES: No edema. No cyanosis. NEUROLOGIC: The patient is awake and alert. Moving all four extremities. No focal deficit. MEDICATIONS: Tylenol, DuoNeb, Rocephin, Pepcid, glipizide, Robitussin, Lopressor and Singulair. LABORATORY DATA: White blood cells 10.3, hemoglobin 10, hematocrit 31.6. Sodium 141, potassium 3.6, BUN 10, creatinine 0.6, and random glucose 151. Chest CT done, unremarkable noncontrast , CT of the chest. ASSESSMENT AND PLAN: The patient is very noncompliant. Had psych history, but he is in denial. Family is aware of that. fall with loss of memory of the event, coronary artery disease, history of coronary stent, hypercholesteremia. ID is on the case for antibiotics. Continue Lovenox for GI and DVT prophylaxis ID and Pulmonary input. Repeat labs. Neurology is to follow up the patient. CAT scan of the head was done. We will follow. Candie Guido MD MTDJesús
--- NOTE | 2018-12-15 13:40 | CP.PCM.CON ---
<RachelShirley - Last Filed: 12/15/18 18:23> History of Present Illness - History of Present Illness History of Present Illness: Shirley Ramos, PGY2, GI Consult Note for Dr Blackmon: CC: generalized weakness, nausea, vomiting, diarrhea, syncope Reason for consult: anemia This is a 73 year old female with PMHx paranoia, heart stents (10+ years), diabetes, hypertension, hyperlipidemia, is here for generalized weakness for past 2-3 weeks. Patient states that she was having nausea, non-bloody, non- bilious vomiting for past few days along with watery, nonbloody diarrhea as well. Patient denies eating anything out of ordinary, denies green/leafy vegetables. Patient is a vegetarian. Patient lives with family, who eats same things as her, and denies any family members having similar symptoms. Denies hematochezia, melena, hematemesis. Patient states that she has anemia for some time, and has been on iron tablets (as given by her PMD Hay). Patient however has refused colonoscopy 5-6 times in the past, when suggested by PMD. No prior EGD/colonoscopy eval. Patient, of note, reports "black stools" at times when she takes iron tablets or eats "black beans." Denies BRBPR. In ED, vitals were stable, no leukocytosis. Patient was found to have yeast UTI. Patient also denies further nausea, vomiting, diarrhea since admission, tolerated regular diet well. 12 point ROS obtained and negative, except as per HPI. PMHx: paranoia, heart stents (10+ years), diabetes, hypertension, hype rlipidemia, anemia on iron tablets. PSHx: heart stents, hysterectomy Allergies: NKDA FH: denies Social Hx: No tobacco, EtOH, or illicit drug use Review of Systems - Review of Systems All systems: reviewed and no additional remarkable complaints except Review of Systems: as per hPI Past Patient History - Infectious Disease Hx of Infectious Diseases: None - Tetanus Immunizations Tetanus Immunization: Up to Date - Past Social History Smoking Status: Never Smoked - CARDIAC Hx Hypercholesterolemia: Yes Hx Hypertension: Yes - ENDOCRINE/METABOLIC Hx Diabetes Mellitus Type 2: Yes - MUSCULOSKELETAL/RHEUMATOLOGICAL Hx Falls: Yes - PSYCHIATRIC Hx Depression: No Hx Emotional Abuse: No Hx Physical Abuse: No Hx Substance Use: No - SURGICAL HISTORY Hx Coronary Stent: Yes Meds Home Medications: Home Medication List Medication Instructions Recorded Confirmed Type Fluconazole [Diflucan] 100 mg PO DAILY #5 tab 12/15/18 Rx Allergies/Adverse Reactions: Allergies Allergy/AdvReac Type Severity Reaction Status Date / Time No Known Allergies Allergy Verified 12/11/18 15:54 - Medications Medications: Current Medications Acetaminophen (Tylenol 325mg Tab) 650 mg PO Q6H PRN PRN Reason: Fever >100.4 F Last Admin: 12/12/18 09:52 Dose: 650 mg Albuterol/Ipratropium (Duoneb 3 Mg/0.5 Mg (3 Ml) Ud) 3 ml IH [id number] [facility] Last Admin: 12/15/18 13:19 Dose: 3 ml Enoxaparin Sodium (Lovenox) 30 mg SC DAILY [facility]; Protocol Last Admin: 12/15/18 09:16 Dose: 30 mg Famotidine (Pepcid) 20 mg PO Q12 [facility] Last Admin: 12/15/18 09:16 Dose: 20 mg Fluconazole (Diflucan) 100 mg PO DAILY [facility]; Protocol Last Admin: 12/15/18 09:17 Dose: 100 mg Folic Acid (Folic Acid) 1 mg PO DAILY [facility] Last Admin: 12/15/18 09:17 Dose: 1 mg Glipizide (Glucotrol Xl) 10 mg PO DAILY [facility] Last Admin: 12/15/18 09:17 Dose: 10 mg Guaifenesin (Robitussin) 100 mg PO Q4H PRN PRN Reason: Cough Last Admin: 12/12/18 17:33 Dose: 100 mg Ceftriaxone Sodium (Rocephin 1 Gram Ivpb) 1 gm in 100 mls @ 100 mls/hr IVPB DAILY [facility]; Protocol Last Admin: 12/15/18 09:15 Dose: 100 mls/hr Iron Sucrose 100 mg/ Sodium (Chloride) 105 mls @ 210 mls/hr IVPB DAILY [facility] Stop: 12/17/18 10:29 Last Admin: 12/15/18 09:16 Dose: 210 mls/hr Insulin Human Regular (Humulin R Low) 0 units SC ACHS [facility]; Protocol Last Admin: 12/15/18 11:30 Dose: Not Given Loratadine (Claritin) 10 mg PO DAILY [facility] Last Admin: 12/15/18 09:17 Dose: 10 mg Metformin HCl (Glucophage) 1,000 mg PO BID [facility] Last Admin: 12/15/18 09:17 Dose: 1,000 mg Metoprolol Tartrate (Lopressor) 25 mg PO DAILY [facility] Last Admin: 12/15/18 09:17 Dose: 25 mg Montelukast Sodium (Singulair) 10 mg PO HS [facility] Last Admin: 12/14/18 21:57 Dose: 10 mg Multivitamins (Thera Tab) 1 tab PO DAILY [facility] Last Admin: 12/15/18 09:16 Dose: 1 tab Physical Exam - Constitutional Appears: Non-toxic, No Acute Distress, Cachectic - Head Exam Head Exam: ATRAUMATIC, NORMOCEPHALIC - Eye Exam Eye Exam: EOMI, PERRL. absent: Conjunctival injection, Nystagmus, Scleral icterus Pupil Exam: NORMAL ACCOMODATION, PERRL. absent: Miosis, Mydriatic - ENT Exam ENT Exam: Mucous Membranes Moist - Neck Exam Neck exam: Positive for: Full Rom - Respiratory Exam Respiratory Exam: Clear to Auscultation Bilateral, NORMAL BREATHING PATTERN. absent: Accessory Muscle Use, Wheezes, Respiratory Distress - Cardiovascular Exam Cardiovascular Exam: RRR, +S1, +S2. absent: Systolic Murmur - GI/Abdominal Exam GI & Abdominal Exam: Normal Bowel Sounds, Soft. absent: Diminished Bowel Sounds, Distended, Firm, Guarding, Organomegaly, Rebound, Tenderness - Extremities Exam Extremities exam: Positive for: normal inspection. Negative for: calf tenderness, pedal edema - Back Exam Back exam: NORMAL INSPECTION - Neurological Exam Neurological exam: Alert, Oriented x3 - Psychiatric Exam Psychiatric exam: Anxious - Skin Skin Exam: Dry, Normal Color, Warm Results - Vital Signs Recent Vital Signs: Last Vital Signs Temp 98 F 12/15/18 06:00 Pulse 66 12/15/18 06:00 Resp 16 12/15/18 06:00 BP 121/75 12/15/18 06:00 Pulse Ox 97 12/15/18 06:00 - Labs Result Diagrams: 12/15/18 07:30 12/14/18 07:00 Labs: Laboratory Results - last 24 hr 12/14/18 12/14/18 12/15/18 16:04 21:16 06:44 WBC RBC Hgb Hct MCV MCH MCHC RDW Plt Count MPV Neut % (Auto) Lymph % (Auto) [place] % (Auto) Eos % (Auto) Baso % (Auto) Lymph # (Auto) [place] # (Auto) Eos # (Auto) Baso # (Auto) Absolute Neuts (auto) POC Glucose (mg/dL) 145 H 128 H 69 12/15/18 12/15/18 07:30 11:21 WBC 7.4 D RBC 3.52 Hgb 9.6 L Hct 30.3 L MCV 86.1 MCH 27.3 MCHC 31.7 RDW 15.1 H Plt Count 314 MPV 9.1 Neut % (Auto) 53.7 Lymph % (Auto) 36.4 H [place] % (Auto) 4.7 Eos % (Auto) 4.9 Baso % (Auto) 0.3 Lymph # (Auto) 2.7 [place] # (Auto) 0.4 Eos # (Auto) 0.4 Baso # (Auto) 0.02 Absolute Neuts (auto) 3.97 POC Glucose (mg/dL) 139 H Assessment & Plan - Assessment and Plan (Free Text) Assessment: # Nausea, vomiting, diarrhea 2/2 gastroenteritis vs gastritis vs IBD vs microscopic colitis # Anemia, r/o GI bleed # Yeast UTI # Fever # DM2 # HTN # HLD # Paranoia # CAD - will order retic count, transferrin saturation level - Ordered CT abd pelvis w/o contrast - EGD tomorrow. NPO after midnight. - c/w antifungal as per primary/ID. - Further recs per Dr Blackmon. Case reviewed and discussed as per Dr Blackmon. <Maria E Blackmon V - Last Filed: 12/16/18 00:45> Meds - Medications Medications: Current Medications Acetaminophen (Tylenol 325mg Tab) 650 mg PO Q6H PRN PRN Reason: Fever >100.4 F Last Admin: 12/12/18 09:52 Dose: 650 mg Albuterol/Ipratropium (Duoneb 3 Mg/0.5 Mg (3 Ml) Ud) 3 ml IH [id number] [facility] Last Admin: 12/15/18 21:00 Dose: 3 ml Enoxaparin Sodium (Lovenox) 30 mg SC DAILY [facility]; Protocol Last Admin: 12/15/18 09:16 Dose: 30 mg Famotidine (Pepcid) 20 mg PO Q12 [facility] Last Admin: 12/15/18 21:16 Dose: 20 mg Fluconazole (Diflucan) 100 mg PO DAILY [facility]; Protocol Last Admin: 12/15/18 09:17 Dose: 100 mg Folic Acid (Folic Acid) 1 mg PO DAILY [facility] Last Admin: 12/15/18 09:17 Dose: 1 mg Glipizide (Glucotrol Xl) 10 mg PO DAILY [facility] Last Admin: 12/15/18 09:17 Dose: 10 mg Guaifenesin (Robitussin) 100 mg PO Q4H PRN PRN Reason: Cough Last Admin: 12/12/18 17:33 Dose: 100 mg Iron Sucrose 100 mg/ Sodium (Chloride) 105 mls @ 210 mls/hr IVPB DAILY [facility] Stop: 12/17/18 10:29 Last Admin: 12/15/18 09:16 Dose: 210 mls/hr Insulin Human Regular (Humulin R Low) 0 units SC ACHS [facility]; Protocol Last Admin: 12/15/18 22:15 Dose: Not Given Loratadine (Claritin) 10 mg PO DAILY [facility] Last Admin: 12/15/18 09:17 Dose: 10 mg Metformin HCl (Glucophage) 1,000 mg PO BID [facility] Last Admin: 12/15/18 17:03 Dose: 1,000 mg Metoprolol Tartrate (Lopressor) 25 mg PO DAILY [facility] Last Admin: 12/15/18 09:17 Dose: 25 mg Montelukast Sodium (Singulair) 10 mg PO HS [facility] Last Admin: 12/15/18 21:16 Dose: 10 mg Multivitamins (Thera Tab) 1 tab PO DAILY [facility] Last Admin: 12/15/18 09:16 Dose: 1 tab Results - Vital Signs Recent Vital Signs: Last Vital Signs Temp 98.1 F 12/15/18 22:12 Pulse 75 12/15/18 22:12 Resp 18 12/15/18 22:12 BP 138/55 L 12/15/18 22:12 Pulse Ox 99 12/15/18 22:12 - Labs Result Diagrams: 12/15/18 07:30 12/14/18 07:00 Labs: Laboratory Results - last 24 hr 12/15/18 12/15/18 12/15/18 06:44 07:30 11:21 WBC 7.4 D RBC 3.52 Hgb 9.6 L Hct 30.3 L MCV 86.1 MCH 27.3 MCHC 31.7 RDW 15.1 H Plt Count 314 MPV 9.1 Neut % (Auto) 53.7 Lymph % (Auto) 36.4 H [place] % (Auto) 4.7 Eos % (Auto) 4.9 Baso % (Auto) 0.3 Lymph # (Auto) 2.7 [place] # (Auto) 0.4 Eos # (Auto) 0.4 Baso # (Auto) 0.02 Absolute Neuts (auto) 3.97 POC Glucose (mg/dL) 69 139 H 12/15/18 12/15/18 16:10 22:07 WBC RBC Hgb Hct MCV MCH MCHC RDW Plt Count MPV Neut % (Auto) Lymph % (Auto) [place] % (Auto) Eos % (Auto) Baso % (Auto) Lymph # (Auto) [place] # (Auto) Eos # (Auto) Baso # (Auto) Absolute Neuts (auto) POC Glucose (mg/dL) 103 111 H Attending/Attestation - Attestation I have personally seen and examined this patient.: Yes I have fully participated in the care of the patient.: Yes I have reviewed all pertinent clinical information: Yes Notes (Text): This is an addendum to the GI consultation report dictated by the resident. The patient was seen and evaluated here earlier. Discussed with the patient's was at bedside. Would recommend iron studies B12 folate and also requested a CT of the abdomen and pelvis with only p.o. contrast. We will schedule for an upper GI endoscopy to evaluate further anemia to rule out upper GI source of blood loss 12/16/18 00:42 12/16/18 00:45
--- NOTE | 2018-12-15 14:33 | CP.PCM.PN ---
Subjective - Date & Time of Evaluation Date of Evaluation: 12/15/18 Time of Evaluation: 14:00 - Subjective Subjective: Infectious Disease Follow Up: December 15, 2018 73 yo female with a PMHx that includes paranoia, heart stents (10+ years), diabetes, hypertension, hyperlipidemia presented to [facility] with 5 day history of nausea, vomiting, and diarrhea. She was found on the floor with no recollection of how she got there. She recently saw her PMD Dr. Guido 4 days ago and was given antibiotics. The patient may have been dehydrated. Possible iron anemia. There is no current leukocytosis. Fever did reach up to 100.8 F one time two days ago. Chest X-ray showing no focal consolidation. Unremarkable CT head. Completed Rocephin. Patient appears to be at her baseline level. Urine cultures showing only yeast. Unremarkable CT Chest. Supportive care. On oral diflucan for yeast in urine cultures. Objective - Vital Signs/Intake and Output Vital Signs (last 24 hours): Temp Pulse Resp BP Pulse Ox 98 F 66 16 121/75 97 12/15/18 06:00 12/15/18 06:00 12/15/18 06:00 12/15/18 06:00 12/15/18 06:00 Intake and Output: 12/15/18 12/15/18 06:59 18:59 Intake Total 840 480 Balance 840 480 - Medications Medications: Current Medications Acetaminophen (Tylenol 325mg Tab) 650 mg PO Q6H PRN PRN Reason: Fever >100.4 F Last Admin: 12/12/18 09:52 Dose: 650 mg Albuterol/Ipratropium (Duoneb 3 Mg/0.5 Mg (3 Ml) Ud) 3 ml IH [id number] [facility] Last Admin: 12/15/18 13:19 Dose: 3 ml Enoxaparin Sodium (Lovenox) 30 mg SC DAILY [facility]; Protocol Last Admin: 12/15/18 09:16 Dose: 30 mg Famotidine (Pepcid) 20 mg PO Q12 [facility] Last Admin: 12/15/18 09:16 Dose: 20 mg Fluconazole (Diflucan) 100 mg PO DAILY [facility]; Protocol Last Admin: 12/15/18 09:17 Dose: 100 mg Folic Acid (Folic Acid) 1 mg PO DAILY [facility] Last Admin: 04/09/19 09:17 Dose: 1 mg Glipizide (Glucotrol Xl) 10 mg PO DAILY [facility] Last Admin: 12/15/18 09:17 Dose: 10 mg Guaifenesin (Robitussin) 100 mg PO Q4H PRN PRN Reason: Cough Last Admin: 12/12/18 17:33 Dose: 100 mg Ceftriaxone Sodium (Rocephin 1 Gram Ivpb) 1 gm in 100 mls @ 100 mls/hr IVPB DAILY [facility]; Protocol Last Admin: 12/15/18 09:15 Dose: 100 mls/hr Iron Sucrose 100 mg/ Sodium (Chloride) 105 mls @ 210 mls/hr IVPB DAILY [facility] Stop: 12/17/18 10:29 Last Admin: 12/15/18 09:16 Dose: 210 mls/hr Insulin Human Regular (Humulin R Low) 0 units SC ACHS [facility]; Protocol Last Admin: 12/15/18 11:30 Dose: Not Given Loratadine (Claritin) 10 mg PO DAILY [facility] Last Admin: 12/15/18 09:17 Dose: 10 mg Metformin HCl (Glucophage) 1,000 mg PO BID [facility] Last Admin: 12/15/18 09:17 Dose: 1,000 mg Metoprolol Tartrate (Lopressor) 25 mg PO DAILY [facility] Last Admin: 12/15/18 09:17 Dose: 25 mg Montelukast Sodium (Singulair) 10 mg PO HS [facility] Last Admin: 12/14/18 21:57 Dose: 10 mg Multivitamins (Thera Tab) 1 tab PO DAILY [facility] Last Admin: 12/15/18 09:16 Dose: 1 tab - Labs Labs: 12/15/18 07:30 12/14/18 07:00 - Constitutional Appears: Non-toxic, No Acute Distress, Chronically Ill - Head Exam Head Exam: ATRAUMATIC, NORMOCEPHALIC - Eye Exam Eye Exam: EOMI, PERRL Pupil Exam: NORMAL ACCOMODATION, PERRL - ENT Exam ENT Exam: Mucous Membranes Moist, Normal External Ear Exam, TM's Normal Bilaterally - Neck Exam Neck Exam: Full ROM, Normal Inspection - Respiratory Exam Respiratory Exam: Clear to Ausculation Bilateral, NORMAL BREATHING PATTERN. absent: Rales, Rhonchi, Wheezes - Cardiovascular Exam Cardiovascular Exam: REGULAR RHYTHM, RRR, +S1, +S2 - GI/Abdominal Exam GI & Abdominal Exam: Soft, Normal Bowel Sounds. absent: Distended, Tenderness - Extremities Exam Extremities Exam: Full ROM, Normal Inspection - Neurological Exam Neurological Exam: Alert, Awake, CN II-XII Intact, Oriented x3 - Psychiatric Exam Psychiatric exam: Normal Affect, Normal Mood - Skin Skin Exam: Intact, Normal Color Assessment and Plan - Assessment and Plan (Free Text) Assessment: 73 yo female with loss of consciousness with PMHx of paranoia, heart stents (10+ years), diabetes, hypertension, and hyperlipidemia. 5 day history of nausea, vomiting, and diarrhea. The patient with episode of fever up to 100.8 F in hospital. Rule out sepsis. UTI, and URI. Continue Rocephin 1gm IV daily for now. Elizalde cultures. No leukocytosis currently. Fever possibly secondary to dehydration? Reculture if fever reappears. Awaiting urine cultures. If negative, will stop Rocephin at 3 days of dosing. No further episodes of fever in the past [address] and Chest CT. Urine cultures are negative for bacteria... stopped Rocephin. Started on oral Diflucan 12/14/2018 for the yeast in the urine culture. Diflucan 100mg PO daily for 7 days. Supportive care. Thank you for allowing me to participate in the care of the patient, we will follow with you.
[2018-12-16] MEDS: Albuterol-Ipratrop 3 mg / 0.5 (3 ml) UD IH SCH ×4 (03:24→21:35)
[2018-12-16 07:45] LABS: BASO # 0.01 K/mm3 (0.0-2.0); BASO % 0.1 % (0.0-3.0); EOS # 0.2 (0.0-0.7); EOS % 3.6 % (1.5-5.0); HEMOGLOBIN 9.2 g/dL (12.0-16.0); LYMPH # 2.4 (1.2-3.4); LYMPH % 35.3 % (22.0-35.0); MEAN CORPUSCULAR HEMOGLOBIN 27.8 pg (25.0-35.0); MEAN CORPUSCULAR HGB CONC 31.9 g/dl (31.0-37.0); MEAN PLATELET VOLUME 9.1 fl (7.0-11.0); MONO # 0.4 (0.1-0.6); MONO % 6.4 % (1.0-6.0); RBC 3.31 10^6/uL (3.5-6.1); RED CELL DISTRIBUTION WIDTH 15.1 % (11.5-14.5); WHITE BLOOD COUNT 6.7 10^3/uL (4.5-11.0)
[2018-12-16] MEDS: Insulin Reg-LOW-Coverage SC SCH ×4 (08:12→22:40)
[2018-12-16 08:52] LABS: ALB/GLOB RATIO 1.1 (1.1-1.8); ALBUMIN 3.4 g/dL (3.0-4.8); ALT/SGPT 8 U/L (7-56); AST/SGOT 24 U/L (14-36); BLOOD UREA NITROGEN 10 mg/dL (7-21); CALCIUM 9.6 mg/dL (8.4-10.5); GFR NON-AFRICAN AMERICAN > 60
[2018-12-16 09:34] LABS: INR 1.19; PROTHROMBIN TIME 13.4 SECONDS (9.4-12.5)
[2018-12-16] MEDS: GlipiZIDE 10 mg SR Tab PO SCH (09:49)
[2018-12-16] MEDS: Multivitamin Therapeutic Tab PO SCH (09:49)
--- NOTE | 2018-12-16 11:10 | CT ---
Date of service: 12/16/2018 PROCEDURE: CT Abdomen and Pelvis without intravenous contrast HISTORY: nausea, vomiting, diarrhea, anemia COMPARISON: None. TECHNIQUE: Without contrast.. Contrast dose: Radiation dose: Total exam DLP = 231.24 mGy-cm. This CT exam was performed using one or more of the following dose reduction techniques: Automated exposure control, adjustment of the mA and/or kV according to patient size, and/or use of iterative reconstruction technique. FINDINGS: LOWER THORAX: Unremarkable. LIVER: Unremarkable. No gross lesion or ductal dilatation. GALLBLADDER AND BILE DUCTS: Unremarkable. PANCREAS: Unremarkable. No gross lesion or ductal dilatation. SPLEEN: Unremarkable. ADRENALS: Unremarkable. No mass. KIDNEYS AND URETERS: Unremarkable. No hydronephrosis. No solid mass. VASCULATURE: Unremarkable. No aortic aneurysm. Aortic calcification BOWEL: Unremarkable. No obstruction. No gross mural thickening. APPENDIX: Unremarkable. Normal appendix. PERITONEUM: Unremarkable. No free fluid. No free air. LYMPH NODES: Unremarkable. No enlarged lymph nodes. BLADDER: Unremarkable. REPRODUCTIVE: Unremarkable. BONES: No acute fracture. OTHER FINDINGS: None. IMPRESSION: Unremarkable non contrast enhanced CT of the abdomen and pelvis.
[2018-12-16] MEDS ORDERED: Simethicone 40 mg/0.6 ml Liquid (30 ml) ONE (15:13)
[2018-12-16] MEDS ORDERED: Benzocaine/Butamben/Tetracai 14-2-2% TOP Spray TOP ONE (15:45)
[2018-12-16] MEDS ORDERED: Lidocaine 2% Jelly (30 ml) ONE (15:45)
[2018-12-16] MEDS ORDERED: Propofol 10 mg/ml Inj (20 ML) ONE (15:49)
--- NOTE | 2018-12-16 16:05 | PN ---
DATE: 12/16/2018 PULMONARY PROGRESS NOTE REFERRING PHYSICIAN: Candie Guido MD SUBJECTIVE: The patient is seen lying in bed, son at bedside. No acute distress. Pending EGD to be done today. No headache, rhinitis, cough, shortness of breath, chest pain, abdominal pain, nausea, vomiting, diarrhea, leg pain, or leg swelling reported. OBJECTIVE: GENERAL: No acute distress. VITAL SIGNS: Blood pressure 145/83, pulse 85, temperature 97.9 and oxygen saturation 100% on room air. HEENT: Moist mucous membranes. Small oral cavity. Crowded airway. NECK: Supple. No JVD. CARDIOVASCULAR: S1 and S2. LUNGS: Fair airflow bilaterally. ABDOMEN: Soft and nontender. No distention. No organomegaly. EXTREMITIES: No bilateral lower extremity edema. NEUROLOGICAL: Awake, alert, and verbal. Following commands. MEDICATIONS: Reviewed. Tylenol 650 mg every 6 hours p.r.n. fever greater than 100.4, DuoNeb 3 mL inhalation every 6 hours, Xanax 1 mg every 6 hours p.r.n. Lovenox 30 mg subcu daily, Pepcid 20 mg every 12 hours, Diflucan 100 mg daily, folic acid 1 mg daily, glipizide 10 mg daily, Robitussin 100 mg every 4 hours p.r.n., Humulin R sliding scale a.c. and h.s., iron sucrose 100 mg at 210 mL daily, Claritin 10 mg daily, Glucophage 1000 mg twice a day, metoprolol tartrate 25 mg daily, Singulair 10 mg at bedtime, and multivitamin 1 tab daily. LABORATORY DATA: Reviewed. WBC 6.7, RBC 3.31, hemoglobin 9.2, hematocrit 28.8, and platelets 330. PT 13.4, INR 1.19. Sodium 141, potassium 4.5, chloride 103, carbon dioxide 30, anion gap 13, BUN 10, creatinine 0.6. GFR greater than 60. POC glucose 124, random glucose 82, calcium 9.6. Total bilirubin 0.1, AST 24, ALT 8, alkaline phosphatase 41, total protein 6.4, albumin 3.4, globulin 3, and albumin-globulin ratio 1.1. Abdominal pelvis CT unremarkable. IMPRESSION AND PLAN: Status post fall with loss of memory of event, coronary artery disease, history of coronary stent, hyperlipidemia, diabetes, urine culture showing yeast. Continue antibiotics per Infectious Disease, gastric prophylaxis, deep vein thrombosis prophylaxis. Continue GI followup. Pending EGD today. We recommend close cardiopulmonary monitoring while sedated. Fall precautions. This patient was seen and examined with Dr. Valdes. Discussed assessment and plan as described above. This patient was seen and examined with Jaquan Corral, nurse practitioner. Discussed assessment and plan as described above. Thank you for this consult. We will follow with you. Jaquan Corral APN Zacarias Valdes MD
[2018-12-16] MEDS ORDERED: Sodium Chloride 0.9% 1,000 ML IV SCH (16:15)
[2018-12-16] MEDS ORDERED: Etomidate 20 mg/10ml Inj IV ONE (16:21)
--- NOTE | 2018-12-16 16:55 | CP.PCM.PN ---
Subjective - Date & Time of Evaluation Date of Evaluation: 12/16/18 Time of Evaluation: 15:30 - Subjective Subjective: Infectious Disease Follow Up: December 16, 2018 73 yo female with a PMHx that includes paranoia, heart stents (10+ years), diabetes, hypertension, hyperlipidemia [place] [facility] [place] 5 day history of nausea, vomiting, and diarrhea. She was found on the floor with no recollection of how she got there. She recently saw her PMD Dr. Guido 4 days ago and was given antibiotics. The patient may have been dehydrated. Possible iron anemia. There is no current leukocytosis. Fever did reach up to 100.8 F one time two days ago. Chest X-ray showing no focal consolidation. Unremarkable CT head. Completed Rocephin. Patient appears to be at her baseline level. Urine cultures showing only yeast. Unremarkable CT Chest. Supportive care. On oral diflucan for yeast in urine cultures. Temperature currently at 97.2 F. Noted patient seen by Gastroenterology. Objective - Vital Signs/Intake and Output Vital Signs (last 24 hours): Temp Pulse Resp BP Pulse Ox 97.2 F L 72 16 141/72 95 12/16/18 16:35 12/16/18 16:35 12/16/18 16:35 12/16/18 16:35 12/16/18 16:35 Intake and Output: 12/16/18 12/16/18 06:59 18:59 Intake Total 730 240 Balance 730 240 - Medications Medications: Current Medications Acetaminophen (Tylenol 325mg Tab) 650 mg PO Q6H PRN PRN Reason: Fever >100.4 F Last Admin: 12/12/18 09:52 Dose: 650 mg Albuterol/Ipratropium (Duoneb 3 Mg/0.5 Mg (3 Ml) Ud) 3 ml IH P2LCSPI [facility] Last Admin: 12/16/18 13:39 Dose: Not Given Alprazolam (Xanax) 0.25 mg PO Q6H PRN; Protocol PRN Reason: Agitation Enoxaparin Sodium (Lovenox) 30 mg SC DAILY [facility]; Protocol Last Admin: 12/15/18 09:16 Dose: 30 mg Famotidine (Pepcid) 20 mg PO Q12 [facility] Last Admin: 12/16/18 09:50 Dose: 20 mg Fluconazole (Diflucan) 100 mg PO DAILY [facility]; Protocol Last Admin: 12/16/18 09:49 Dose: 100 mg Folic Acid (Folic Acid) 1 mg PO DAILY [facility] Last Admin: 12/16/18 09:49 Dose: 1 mg Glipizide (Glucotrol Xl) 10 mg PO DAILY [facility] Last Admin: 12/16/18 09:49 Dose: 10 mg Guaifenesin (Robitussin) 100 mg PO Q4H PRN PRN Reason: Cough Last Admin: 12/12/18 17:33 Dose: 100 mg Iron Sucrose 100 mg/ Sodium (Chloride) 105 mls @ 210 mls/hr IVPB DAILY [facility] Stop: 12/17/18 10:29 Last Admin: 12/16/18 09:48 Dose: 210 mls/hr Sodium Chloride (Sodium Chloride 0.9%) 1,000 mls @ 100 mls/hr IV .Q10H [facility] Stop: 12/16/18 18:07 Insulin Human Regular (Humulin R Low) 0 units SC ACHS [facility]; Protocol Last Admin: 12/16/18 16:01 Dose: Not Given Loratadine (Claritin) 10 mg PO DAILY [facility] Last Admin: 12/16/18 09:50 Dose: 10 mg Metformin HCl (Glucophage) 1,000 mg PO BID [facility] Last Admin: 12/16/18 09:49 Dose: 1,000 mg Metoprolol Tartrate (Lopressor) 25 mg PO DAILY [facility] Last Admin: 12/16/18 09:49 Dose: 25 mg Montelukast Sodium (Singulair) 10 mg PO HS [facility] Last Admin: 12/15/18 21:16 Dose: 10 mg Multivitamins (Thera Tab) 1 tab PO DAILY [facility] Last Admin: 12/16/18 09:49 Dose: 1 tab Quetiapine Fumarate (Seroquel) 12.5 mg PO HS PRN; Protocol PRN Reason: agitation/psychosis - Labs Labs: 12/16/18 05:00 12/16/18 08:00 PT 13.4 SECONDS (9.4-12.5) H 12/16/18 09:15 INR 1.19 12/16/18 09:15 - Constitutional Appears: Non-toxic, No Acute Distress, Chronically Ill - Head Exam Head Exam: ATRAUMATIC, NORMOCEPHALIC - Eye Exam Eye Exam: EOMI, PERRL Pupil Exam: NORMAL ACCOMODATION, PERRL - ENT Exam ENT Exam: Mucous Membranes Moist, Normal External Ear Exam, TM's Normal Bilaterally - Neck Exam Neck Exam: Full ROM, Normal Inspection - Respiratory Exam Respiratory Exam: Clear to Ausculation Bilateral, NORMAL BREATHING PATTERN. absent: Rales, Rhonchi, Wheezes - Cardiovascular Exam Cardiovascular Exam: REGULAR RHYTHM, RRR, +S1, +S2 - GI/Abdominal Exam GI & Abdominal Exam: Soft, Normal Bowel Sounds. absent: Distended, Tenderness - Extremities Exam Extremities Exam: Full ROM, Normal Inspection - Neurological Exam Neurological Exam: Alert, Awake, CN II-XII Intact, Oriented x3 - Psychiatric Exam Psychiatric exam: Normal Affect, Normal Mood - Skin Skin Exam: Intact, Normal Color Assessment and Plan - Assessment and Plan (Free Text) Assessment: 73 yo female with loss of consciousness with PMHx of paranoia, heart stents (10+ years), diabetes, hypertension, and hyperlipidemia. 5 day history of nausea, vomiting, and diarrhea. The patient with episode of fever up to 100.8 F in hospital. Rule out sepsis. UTI, and URI. Continue Rocephin 1gm IV daily for now. Elizalde cultures. No leukocytosis currently. Fever possibly secondary to dehydration? Reculture if fever reappears. Awaiting urine cultures. If negative, will stop Rocephin at 3 days of dosing. No further episodes of fever in the past [address] and Chest CT. Urine cultures are negative for bacteria... stopped Rocephin. Started on oral Diflucan 12/14/2018 for the yeast in the urine culture. Diflucan 100mg PO daily for 7 days. Supportive care. Noted CT abdomen and pelvis ordered. Thank you for allowing me to participate in the care of the patient, we will follow with you.
--- NOTE | 2018-12-16 18:36 | CON ---
DATE OF CONSULTATION: 12/16/2018 HISTORY OF PRESENT ILLNESS: In short, the patient is a 73-year-old female, who was admitted on the medical site for nausea, vomiting and diarrhea. Psych consult was called because the patient had episodes of paranoia, also has a history of mental illness. The patient was seen and examined today. The patient presented deeply sleeping, not in any acute distress. The patient's son, Omar, is next to the patient. Due to the patient's presentation, this policy writer was not able to interview her, but collateral information was obtained from the patient's son, Omar. Son reported that the patient had long history of mental illness since 2001. The patient would present to be paranoid, psychotic, sometimes she feels that somebody is monitoring her from the TV. The patient was stable in regard of her psychotic symptoms. No recent changes with the presentation. The patient's son reported that she was seen by a psychiatrist in [facility], and she was prescribed some psychotropic medication, which gave the patient severe side effects such as tremor as well as face asymmetry. The patient's son is not sure what medication was given to the patient in the past. Son reported that the patient never tried to kill herself in the past, but she would make threats. The patient had never been admitted to the psychiatric inpatient unit before. PHYSICAL EXAMINATION: VITAL SIGNS: Reviewed. Temperature 97.2, pulse 62, blood pressure 129/69, respirations 16, oxygen saturation is 99. MEDICATIONS: Reviewed. The patient is on Tylenol, DuoNeb, Xanax 1 mg p.o. every 6 hours as needed for agitation. This policy writer will decrease the dose because this dose is very high for this patient and complexity. Dose was decreased to 0.25 mg three times a day. The patient also is on Lovenox, Pepcid, Diflucan, folic acid, Glucotrol, Robitussin, Humulin, Claritin, Glucophage, Lopressor, Singulair, and multivitamins. LABORATORY DATA: Labs reviewed. Urinalysis showed yeast species. MENTAL STATUS EXAMINATION: This policy writer was not able to arouse the patient, but as per report, the patient presented to be disorganized and paranoid. IMPRESSION: Most likely, the patient has either schizophrenia or delusional disorder or delirium. We need to find out more about the patient's presentation. PLAN: Seroquel was started, Xanax dose decreased, collateral information obtained from the patient's family, treatment options discussed with the patient's son. Should you have any questions give me a call back. Sherrill Werner MD
[2018-12-16 22:51] VITALS: RESP 18
[2018-12-17] MEDS: Albuterol-Ipratrop 3 mg / 0.5 (3 ml) UD IH SCH ×2 (03:12→07:49)
[2018-12-17 05:53] VITALS: BP 106/66; PULSE 76; TEMP 98.3; O2SAT 97
--- NOTE | 2018-12-17 07:01 | CP.PCM.PN ---
<Shirley Ramos - Last Filed: 12/17/18 12:01> Subjective - Date & Time of Evaluation Date of Evaluation: 12/17/18 Time of Evaluation: 07:01 - Subjective Subjective: Shirley Ramos, PGY2, GI Progress Note for Dr Blackmon: Patient seen and examined at bedside. No acute events overnight. Patient states that she is hungry and would like to eat. Denies nausea, vomiting, abdominal pain, hematochezia, melena. Last BM yesterday, soft. Objective - Vital Signs/Intake and Output Vital Signs (last 24 hours): Temp Pulse Resp BP Pulse Ox 98.3 F 76 18 106/66 97 12/17/18 05:53 12/17/18 05:53 12/17/18 05:53 12/17/18 05:53 12/17/18 05:53 Intake and Output: 12/17/18 12/17/18 06:59 18:59 Intake Total 360 Balance 360 - Medications Medications: Current Medications Acetaminophen (Tylenol 325mg Tab) 650 mg PO Q6H PRN PRN Reason: Fever >100.4 F Last Admin: 12/12/18 09:52 Dose: 650 mg Albuterol/Ipratropium (Duoneb 3 Mg/0.5 Mg (3 Ml) Ud) 3 ml IH T3OURDL [facility] Last Admin: 12/17/18 03:12 Dose: 3 ml Alprazolam (Xanax) 0.25 mg PO Q6H PRN; Protocol PRN Reason: Agitation Enoxaparin Sodium (Lovenox) 30 mg SC DAILY [facility]; Protocol Last Admin: 12/15/18 09:16 Dose: 30 mg Famotidine (Pepcid) 20 mg PO Q12 [facility] Last Admin: 12/16/18 22:48 Dose: Not Given Fluconazole (Diflucan) 100 mg PO DAILY [facility]; Protocol Last Admin: 12/16/18 09:49 Dose: 100 mg Folic Acid (Folic Acid) 1 mg PO DAILY [facility] Last Admin: 12/16/18 09:49 Dose: 1 mg Glipizide (Glucotrol Xl) 10 mg PO DAILY [facility] Last Admin: 12/16/18 09:49 Dose: 10 mg Guaifenesin (Robitussin) 100 mg PO Q4H PRN PRN Reason: Cough Last Admin: 12/12/18 17:33 Dose: 100 mg Iron Sucrose 100 mg/ Sodium (Chloride) 105 mls @ 210 mls/hr IVPB DAILY [facility] Stop: 12/17/18 10:29 Last Admin: 12/16/18 09:48 Dose: 210 mls/hr Insulin Human Regular (Humulin R Low) 0 units SC ACHS [facility]; Protocol Last Admin: 12/16/18 22:40 Dose: Not Given Loratadine (Claritin) 10 mg PO DAILY [facility] Last Admin: 12/16/18 09:50 Dose: 10 mg Metformin HCl (Glucophage) 1,000 mg PO BID [facility] Last Admin: 12/16/18 17:21 Dose: Not Given Metoprolol Tartrate (Lopressor) 25 mg PO DAILY [facility] Last Admin: 12/16/18 09:49 Dose: 25 mg Montelukast Sodium (Singulair) 10 mg PO HS [facility] Last Admin: 12/16/18 22:47 Dose: Not Given Multivitamins (Thera Tab) 1 tab PO DAILY [facility] Last Admin: 12/16/18 09:49 Dose: 1 tab Quetiapine Fumarate (Seroquel) 12.5 mg PO HS PRN; Protocol PRN Reason: agitation/psychosis - Labs Labs: 12/16/18 05:00 12/16/18 08:00 PT 13.4 SECONDS (9.4-12.5) H 12/16/18 09:15 INR 1.19 12/16/18 09:15 - Additional Findings Additional findings: - Constitutional Appears: Non-toxic, No Acute Distress, Cachectic - Head Exam Head Exam: ATRAUMATIC, NORMOCEPHALIC - Eye Exam Eye Exam: EOMI, PERRL. absent: Conjunctival injection, Nystagmus, Scleral icterus Pupil Exam: NORMAL ACCOMODATION, PERRL. absent: Miosis, Mydriatic - ENT Exam ENT Exam: Mucous Membranes Moist - Neck Exam Neck exam: Positive for: Full Rom - Respiratory Exam Respiratory Exam: Clear to Auscultation Bilateral, NORMAL BREATHING PATTERN. absent: Accessory Muscle Use, Wheezes, Respiratory Distress - Cardiovascular Exam Cardiovascular Exam: RRR, +S1, +S2. absent: Systolic Murmur - GI/Abdominal Exam GI & Abdominal Exam: Normal Bowel Sounds, Soft. absent: Diminished Bowel Sounds, Distended, Firm, Guarding, Organomegaly, Rebound, Tenderness - Extremities Exam Extremities exam: Positive for: normal inspection. Negative for: calf tenderness, pedal edema - Back Exam Back exam: NORMAL INSPECTION - Neurological Exam Neurological exam: Alert, Oriented x3 - Psychiatric Exam Psychiatric exam: Anxious - Skin Skin Exam: Dry, Normal Color, Warm Assessment and Plan - Assessment and Plan (Free Text) Assessment: # Nausea, vomiting, diarrhea, resolved 2/2 gastroenteritis vs gastritis vs IBD vs microscopic colitis # Anemia, r/o GI bleed, s/p EGD yesterday # Yeast UTI # Fever # DM2 # HTN # HLD # Paranoia # CAD - retic count 1.14. Transferrin low 170. Iron studies indicating anemia of c hronic disease. - CT abd pelvis with PO contrast negative for any masses. - EGD showed no source of upper GI bleed. Recommend colonoscopy outpatient. - c/w antifungal for UTI as per primary/ID. - Further recs per Dr Blackmon. Case reviewed and discussed as per Dr Blackmon. <Maria E Blackmon V - Last Filed: 12/18/18 00:44> Objective - Vital Signs/Intake and Output Vital Signs (last 24 hours): Temp Pulse Resp BP Pulse Ox 98.3 F 76 18 106/66 97 12/17/18 06:00 12/17/18 06:00 12/17/18 06:00 12/17/18 06:00 12/17/18 06:00 - Labs Labs: 12/16/18 05:00 12/16/18 08:00 PT 13.4 SECONDS (9.4-12.5) H 12/16/18 09:15 INR 1.19 12/16/18 09:15 Attending/Attestation - Attestation I have personally seen and examined this patient.: Yes I have fully participated in the care of the patient.: Yes I have reviewed all pertinent clinical information, including history, physical exam and plan: Yes Notes (Text): This patient was seen and evaluated here earlier this is an addendum to the GI progress report dictated by the medical imaging technologist. The patient needs a colonoscopy. Patient was advised to follow-up with the primary physician and also senior product marketing manager as per her insurance plan. 12/18/18 00:42
--- NOTE | 2018-12-17 08:36 | PN ---
DATE: 12/16/2018 The patient was admitted on 12/13/2018. REASON FOR VISIT: Shortness of breath, syncope. SUBJECTIVE: The patient has a past medical history of diabetes mellitus, hypercholesterolemia, iron-deficiency anemia, hypertension, hearing loss, pneumonia. Seen the patient today at bedside. She was calm after dose of Xanax 0.25 mg. She was sleeping. No acute distress or agitation noted at time of visit, did talk to nurse that day. She during the night was very, very agitated, has some thoughts that someone was after her, very paranoia, did not sleep last night according to staff on floor. we will do psych eval. PHYSICAL EXAMINATION: VITAL SIGNS: Temperature 97.2, pulse rate 72, blood pressure 141/72, respiratory rate 16, O2 saturation 95% on nasal cannula 3 L. GENERAL: No acute distress, less agitated, confused, and short of breath at bedside today. HEENT: Normocephalic. PERRLA. RESPIRATORY: Clear to auscultation. CARDIAC: S1, S2. NECK: No JVD. GASTROINTESTINAL: Abdomen is soft, nontender, nondistended. Positive bowel sounds. EXTREMITIES: Full range of motion. No edema, joint swelling, calf tenderness. NEUROLOGIC: The patient is alert, confused. SKIN: Normal color, dry, and intact. MEDICATIONS: Albuterol, Xanax 0.25 mg, Lovenox prophylactically, Pepcid, Diflucan, folic acid, glipizide, Robitussin, Claritin, metformin, Lopressor, Singulair, Seroquel 12.5 agitation and psychosis. LABORATORY DATA: White blood cells 6.7, hemoglobin 9.2, hematocrit 28.8, platelet 330. PT 13.4, INR 1.19. Sodium 141, potassium 4.5, chloride 103, carbon dioxide 30, BUN 13, creatinine 0.6, random glucose 66, AST 24, ALT 8. ASSESSMENT AND PLAN: The patient is a 73-year-old female admitted for syncope with a history of diabetes, hypertension, hypercholesterolemia. She is being seen by Cardiology, Pulmonology and Dr. Blackmon, Gastroenterology. Also, the patient was for psychosis and agitation. Plan will be care for psychiatry consult to be involved with the case when the patient is medically stable. The patient will go to inpatient psychiatry for agitation and psychosis. We will follow up. PT IS S/E AT BED SIDE , D/D WITH WEIGHER AND MIXER AND STAFF, AGREED WITH ALL ABOVE . EDUCATION DONE , PT , OT , GI ANG DVT PROPHYLAXIS DONE William Schroeder APN Candie Guido MD MTDJesús
[2018-12-17] MEDS: Insulin Reg-LOW-Coverage SC SCH (09:28)
[2018-12-17] MEDS: GlipiZIDE 10 mg SR Tab PO SCH (09:28)
[2018-12-17] MEDS: Multivitamin Therapeutic Tab PO SCH (09:28)
--- NOTE | 2018-12-17 12:31 | PN ---
DATE: 12/17/2018 REFERRING PHYSICIAN: Candie Guido MD SUBJECTIVE: The patient is seen in room, no acute distress. No overnight events reported. The patient is status post EGD yesterday. Reports feeling well today. No headache, rhinitis, cough, shortness of breath, chest pain, abdominal pain, nausea, vomiting, diarrhea, leg pain or leg swelling reported. OBJECTIVE: VITAL SIGNS: Blood pressure 106/66, pulse 76, temperature 98.3, oxygen saturation 97% on room air. GENERAL: No acute distress. HEENT: Moist mucous membranes. Small oral cavity. Crowded airway. NECK: No JVD. CARDIOVASCULAR: S1 and S2. LUNGS: Fair airflow bilaterally. ABDOMEN: Soft and nontender. No distension. No organomegaly. EXTREMITIES: No bilateral lower extremity edema. NEUROLOGICAL: Awake, alert, and verbal. Following commands. MEDICATIONS: Reviewed. Tylenol 650 every 6 hours p.r.n. fever greater than 100.4, DuoNeb 3 mL inhalation every 6 hours, Xanax 1 mg every 6 hours p.r.n. Xanax 0.25 mg every 6 hours p.r.n., Lovenox 30 mg subcutaneous daily, Pepcid 20 mg every 12 hours, Diflucan 100 mg daily, folic acid 1 mg daily, glipizide 10 mg daily, Robitussin 100 mg every 4 hours p.r.n., Humulin R sliding scale before meals. and h.s., iron sucrose 100 mg daily, Claritin 10 mg daily, metformin 1000 mg twice a day, metoprolol tartrate 25 mg daily, Singulair 10 mg at bedtime, multivitamin 1 tab daily, Seroquel 12.5 mg p.o. h.s. p.r.n., sodium chloride 0.9% in 1000 mL at 100 mL per hour. LABORATORY DATA: Reviewed. POC glucose 86. IMPRESSION AND PLAN: Status post fall with loss of memory event, coronary artery disease, history of coronary stent, hyperlipidemia, diabetes, urine cultures showing yeast, anemia, paranoia. EGD showed no source of upper gastrointestinal bleed. The patient to have colonoscopy as outpatient. Gastrointestinal know to pursue it. The patient for discharge home today. We recommend the patient follow up as outpatient. Recommends sleep study as outpatient to rule out sleep apnea, fall precautions. The patient was seen and examined with Dr. Valdes. Discussed assessment and plan as described above. This patient was seen and examined with Jaquan Corral, nurse practitioner. Discussed assessment and plan as described above. Thank you for this consult. We will follow with you. Jaquan Corral APN Zacarias Valdes MD
--- NOTE | 2018-12-17 13:20 | DS ---
The patient was seen and examined at the bedside on 12/17/2018. CHIEF COMPLAINT: Coughing, shortness of breath, and passing out. HISTORY OF PRESENT ILLNESS: Ms. Joann Coronado is a 73-year-old female with past medical history of coronary artery disease, cardiac stenting 10 years ago; diabetes mellitus; hypertension; hypercholesteremia; came to the emergency department accompanying with family, was complaining of nausea, vomiting, diarrhea, passing out, coughing, and shortness of breath. We admitted the patient, did CAT scan of the head. Electrocardiogram done. CAT scan of the chest is done. CAT scan of the abdomen and pelvis done. Dr. Blackmon did upper endoscopy. The patient was very agitated during hospital stay. She has history of schizophrenia. consult with Dr. Alphonso Mccartney, he saw the patient. Today, the patient was doing very well. No event happened overnight. No headache. No dizziness. No chest pain. No palpitation. We discharged the patient home. FAMILY HISTORY: Father and mother noncontributory. HABITS: Never smoked. No drugs. No ethanol. PAST MEDICAL HISTORY: As above diabetes mellitus, type 2; history of fall; hypertension; hypercholesterolemia; coronary artery disease, status post cardiac stenting. ALLERGIES: THE PATIENT IS NOT ALLERGIC WITH ANY MEDICATIONS. HOME MEDICATIONS: Reviewed by me. REVIEW OF SYSTEMS: The patient was seen and examined at bedside, looking comfortable. No fever. No chills. No hematuria. No hematochezia. No headache. No dizziness. No chest pain. No palpitation. PHYSICAL EXAMINATION VITAL SIGNS: Temperature 98.3, pulse 76, blood pressure 102/66, respiratory rate 18, and oxygen saturation 97%. HEENT: Head: Normocephalic, atraumatic. Eyes: PERRLA. Extraocular muscles intact. Conjunctivae clear. Nose patent. Mucous membranes moist. NECK: Supple. No carotid bruits. No JVD or thyromegaly. CHEST: Bilaterally symmetrical. HEART: S1 and S2 positive. LUNGS: Clear to auscultation. ABDOMEN: Soft. Bowel sounds present. No organomegaly. EXTREMITIES: No edema. No cyanosis. NEUROLOGIC: The patient is awake, alert, moving all four extremities. No focal deficits. MEDICATIONS: Amidate, Claritin, Diflucan, folic acid, Glucophage, insulin, lidocaine, Lopressor, Lovenox, simethicone, Pepcid, Singulair, and Xanax. LABORATORY DATA: White blood cells 6.7, hemoglobin 9.2, hematocrit 28.8, and platelets 330. Sodium 141, potassium 4.5, BUN 10, creatinine 0.6, and glucose 86. ASSESSMENT AND PLAN: Ms. Joann Coronado is a 73-year-old lady with anemia, hyperglycemia, glucosuria, ketonuria, urinary tract infection, history of diabetes mellitus, and hypertension. CAT scan of the abdomen and pelvis done; gastroenteritis versus gastritis versus IBD versus microscopic colitis. EGD done yesterday; yeast UTI, paranoia, coronary artery disease. EGD shows no source of upper GI bleeding, recommended colonoscopy as outpatient. Discharged home. Follow up as outpatient. Medications provided on the bedside. Candie Guido MD MTDJesús
--- NOTE | 2018-12-17 16:00 | CP.PCM.PCO ---
Physician Communication Note - Physician Communication Note Physician Communication Note: pt was d/c
== END 2018-12-17 10:07 | disposition home or self-care (01) | DRG 813 ==
LOC: ED 15:50 → ERH 19:11 → 2RNO 22:51 → 5RSO 12-13 16:13 → OBSVTOIN 12-13 23:20
PROVIDERS: ADMIT Internal Medicine; ATTEND Internal Medicine
PROC: 0DB98ZX Excision of Duodenum, Via Natural or Artificial Opening Endoscopic, Diagnostic (ICD-10-PCS; 2018-12-16)
PROC: 0DB68ZX Excision of Stomach, Via Natural or Artificial Opening Endoscopic, Diagnostic (ICD-10-PCS; principal; 2018-12-16 14:00)
DX: K52.9 Noninfective gastroenteritis and colitis, unspecified (principal); E11.65 Type 2 diabetes mellitus with hyperglycemia; B37.49 Other urogenital candidiasis; E11.42 Type 2 diabetes mellitus with diabetic polyneuropathy; F20.9 Schizophrenia, unspecified; E87.6 Hypokalemia; E86.0 Dehydration; K29.70 Gastritis, unspecified, without bleeding; R55 Syncope and collapse; D50.9 Iron deficiency anemia, unspecified; I10 Essential (primary) hypertension; I25.10 Atherosclerotic heart disease of native coronary artery without angina pectoris; E78.00 Pure hypercholesterolemia, unspecified; J06.9 Acute upper respiratory infection, unspecified; E78.5 Hyperlipidemia, unspecified; H91.90 Unspecified hearing loss, unspecified ear; Z91.19 Patient's noncompliance with other medical treatment and regimen; Z95.5 Presence of coronary angioplasty implant and graft; Z79.84 Long term (current) use of oral hypoglycemic drugs